=== PATIENT | male | born 1985 | race Caucasian/White ===

== ENCOUNTER 2019-10-08 11:05 | Emergency (ER) | payer BC, SELFPAY ==
--- NOTE | ~2019-10-08 | XR_ITS ---
EXAMINATION: XR chest 1V portable INDICATION: Overdose TECHNIQUE: Portable AP chest at 1144 hours COMPARISON: None available FINDINGS: The lungs are free of acute opacities. There is no pleural effusion or pneumothorax. The ca rdiomediastinal silhouette is normal. The visualized bones and soft tissues are unremarkable. IMPRESSION: 1. No acute cardiopulmonary abnormality. Reviewed, dictated and finalized at location B.
[2019-10-08 11:02] VITALS: BP 116/73; PULSE 98; RESP 15; TEMP 36.2; O2SAT 99
--- NOTE | 2019-10-08 11:14 | ECG_ITS ---
Measurements Intervals [place] Rate: 98 P: 58 MD: 166 QRS: 48 QRSD: 100 T: 46 QT: 351 QTc: 449 Interpretive Statements SINUS RHYTHM NORMAL ECG Electronically Signed On 10-08-2019 11:18:57 CDT by Justus Lester D.O.
[2019-10-08 11:30] LABS: Basophils Absolute Auto 0.1 K/mm3 (0.0-0.1); Basophils Percent Auto 0.6 % (0.2-1.2); Eosinophils Absolute Auto 0.2 K/mm3 (0-0.3); Eosinophils Percent Auto 3.1 % (0-4.4); Hematocrit 41.3 % (42.0-52.0); Immature Granulocyte Absolute 0.06 K/mm3 (0.00-0.031); Immature Granulocyte Percent A 0.8 % (0-0.5); Lymphocytes Absolute Auto 1.44 K/mm3 (0.9-3.2); Lymphocytes Percent Auto 18.5 % (18.3-44.2); Mean Corpuscular HGB Conc 33.9 g/dl (32-36); Mean Corpuscular Hemoglobin 33.3 pg (26-34); Mean Corpuscular Volume 98.3 fl (80-100); Mean Platelet Volume 9.2 fl (7.4-10.4); Monocytes Absolute Auto 0.9 K/mm3 (0.1-0.6); Monocytes Percent Auto 11.3 % (2.6-8.5); Neutrophils Absolute Auto 5.1 K/mm3 (1.3-6.7); Neutrophils Percent Auto 65.7 % (45.5-73.1); Platelet Count Result 422 k/mm3 (150-375); Red Cell Distribution Width 13.8 % (11.5-14.5); White Blood Count 7.8 K/mm3 (4.5-10.0)
--- NOTE | 2019-10-08 11:32 | ED.GENADULT ---
HPI - General Adult General Chief complaint: Overdose <Demetrius Onofre PA-C - Last Filed: 10/08/19 12:32> Stated complaint: FENTANYL OD <Demetrius Onofre PA-C - Last Filed: 10/08/19 12:32> Source: patient <Demetrius Onofre PA-C - Last Filed: 10/08/19 12:32> Mode of arrival: EMS <Demetrius Onofre PA-C - Last Filed: 10/08/19 12:32> Limitations: no limitations <Demetrius Onofre PA-C - Last Filed: 10/08/19 12:32> History of Present Illness HPI narrative: Patient a 33-year-old male who presents to emergency department for evaluation of fentanyl overdose history of IV fentanyl abuse was responded to after lumbar 1 found him was given Narcan with improvement on arrival patient notes he has nausea with fatigue. Patient notes he was fine prior and denies illness COVID symptoms or exposures. Patient had an episode of emesis after being given Narcan. On arrival patient is alert and oriented x3. Patient denies any pain or other complaints besides nausea at this time <Demetrius Onofre PA-C - Last Filed: 10/08/19 12:32> Related Data Home medications: Home Medications Medication Instructions Recorded Confirmed No Home Medications 10/08/19 10/08/19 <Demetrius Onofre PA-C - Last Filed: 10/08/19 12:32> Allergies/adverse reactions: Allergies Allergy/AdvReac Type Severity Reaction Status Date / Time No Known Allergies Allergy Verified 10/08/19 11:10 <Demetrius Onofre PA-C - Last Filed: 10/08/19 12:32> Review of Systems Review of Systems: All systems reviewed & are unremarkable except as noted in HPI and below <Demetrius Onofre PA-C - Last Filed: 10/08/19 12:32> [facility] Past Medical History Medical History: Medical History (Updated 10/08/19 @ 12:32 by Demetrius Onofre PA-C) Accidental fentanyl overdose Hepatitis C <Demetrius Onofre PA-C - Last Filed: 10/08/19 12:32> Social History Social History: Social History Smoking status: Current every day smoker Alcohol intake: unknown Substance use: current Substance use type: IV drugs <Demetrius Onofre PA-C - Last Filed: 10/08/19 12:32> Exam Narrative: Exam Narrative: GENERAL: Well-appearing, well-nourished, and in no acute distress. HEAD: Normocephalic, atraumatic. EYES: PERRLA and EOMI. ENT: Nares clear, no rhinorrhea or epistaxis. Mucous membranes moist. CHEST: Clear to auscultation. No respiratory distress. No wheezes rales or rhonchi HEART: Regular rate and rhythm. No murmur heard. Normal peripheral pulses. ABDOMEN: Soft, nontender, nondistended EXTREMITIES: Normal range of motion. No edema. SKIN: Warm, dry, no rash. NEURO: No focal deficits. Alert and oriented x3. PSYCH: Normal mood and affect. <Demetrius Onofre PA-C - Last Filed: 10/08/19 12:32> Course Course Emergency Course: Patient in the room at this time afebrile nontoxic-appearing has remained in normal mentation. Patient feels comfortable to go home feels much better at this time was given medications and fluids. Patient able to ambulate without difficulty. Patient will be discharged home. No high risk changes in the imaging or blood work. Patient has remained hemodynamically stable <CINDY Canela Last Filed: 10/08/19 12:32> Vital Signs Vital signs: Vital Signs Temperature 97.2 F L 10/08/19 11:02 Pulse Rate 98 10/08/19 11:02 Respiratory Rate 15 10/08/19 11:02 Blood Pressure 116/73 10/08/19 11:02 Pulse Oximetry 99 10/08/19 11:02 Temperature 97.2 F L 10/08/19 11:02 Pulse Rate 76 10/08/19 12:05 Respiratory Rate 18 10/08/19 12:05 Blood Pressure 105/70 10/08/19 12:05 Pulse Oximetry 98 10/08/19 12:05 <Demetrius Onofre PA-C - Last Filed: 10/08/19 12:32> Vital Signs Temperature 97.2 F L 10/08/19 11:02 Pulse Rate 98 10/08/19 11:02 Respiratory Rate 15 10/08/19 11:02 Blood Pressure 116/7
[2019-10-08 11:42] LABS: Anion Gap 12.1 mmol/L (7-16); Blood Urea Nitrogen 11 mg/dL (9-20); Calcium 8.6 mg/dL (8.4-10.2); Carbon Dioxide 29 mmol/L (22-30); Chloride 102 mmol/L (98-107); Estimated CRCL calculation 100 ml/min; Estimated Glomerular Filt Rate > 60; Glucose 71 mg/dL (75-110); Potassium 4.1 mmol/L (3.4-5.0); Sodium 139 mmol/L (137-145)
[2019-10-08 11:46] LABS: Creatine Kinase 123 U/L (55-170)
[2019-10-08] MEDS: FAMOTIDINE 20 MG/2 ML VIAL IV PUSH (11:55)
[2019-10-08 12:05] VITALS: BP 105/70; PULSE 76; RESP 18; O2SAT 98
[2019-10-08] MEDS: LACTATED RINGERS 1,000 ML 999 ML IV CONT (12:05)
[2019-10-08] MEDS: SODIUM CHLORIDE 0.9% IV 1,000 ML 999 ML IV CONT (12:05)
[2019-10-08] MEDS: ONDANSETRON INJ 4 MG/2 ML VIAL IV PUSH (12:05)
[2019-10-08 12:52] VITALS: BP 110/70; PULSE 86; RESP 17; O2SAT 98
== END 2019-10-08 12:52 | disposition home or self-care (01) ==
PROVIDERS: Emergency Medicine Emergency Medical Services; Emergency Provider Emergency Medicine
DX: T40.4X1A Poisoning by other synthetic narcotics, accidental (unintentional), initial encounter (principal); F17.200 Nicotine dependence, unspecified, uncomplicated; Z86.19 Personal history of other infectious and parasitic diseases
CPT/HCPCS: 36415; 71045; 80048; 82550; 85025; 93005; 96361; 96374; 96375; 99284; J2310; J2405; J7030; J7120

== ENCOUNTER 2020-01-11 19:34 | Emergency (ER) | payer BC, SELFPAY ==
--- NOTE | ~2020-01-11 | XR_ITS ---
XR abdomen/kub 1V 01/11/2020 20:29 Indication: Foreign body ingestion Procedure: KUB Comparison: No prior studies for comparison. Findings: Bowel gas pattern nonobstructive. There is a radiodensity in the pelvis, possibly foreign b rajesh versus external object. No acute osseous abnormality. Impression: 1: Possible foreign body overlying the pelvis. Reviewed, dictated and finalized at location A. Impression: 1: Possible foreign body overlying the pelvis.
[2020-01-11 19:38] VITALS: BP 140/117; PULSE 123; RESP 20; TEMP 36.7; O2SAT 100
--- NOTE | 2020-01-11 20:04 | ECG_ITS ---
Measurements Intervals [place] Rate: 75 P: 62 [place]: 142 QRS: 71 QRSD: 94 T: 64 QT: 380 QTc: 426 Interpretive Statements SINUS RHYTHM BASELINE ARTIFACT- I, III, AVL NORMAL ECG Electronically Signed On 01-12-2020 8:09:59 CDT by Justus Lester D.O.
--- NOTE | 2020-01-11 20:05 | PC.NURSE ---
called posdarnell guzman conversshan davis advise of pt status of ingestion.
[2020-01-11] MEDS: LACTATED RINGERS 1,000 ML 150 ML IV CONT (20:16)
[2020-01-11] MEDS: ONDANSETRON INJ 4 MG/2 ML VIAL IV PUSH (20:17)
[2020-01-11 20:48] LABS: Anion Gap 9 mmol/L (8-16); Blood Urea Nitrogen 23 mg/dL (9-20); Calcium 9.1 mg/dL (8.4-10.2); Carbon Dioxide 32 mmol/L (22-30); Chloride 96 mmol/L (98-107); Estimated CRCL calculation 60 ml/min; Estimated Glomerular Filt Rate 58; Glucose 74 mg/dL (75-110); Magnesium 2.3 mg/dL (1.6-2.3); Potassium 3.9 mmol/L (3.4-5.0); Sodium 137 mmol/L (137-145)
[2020-01-11] MEDS: PEG (High)/E-LYTE SOLN 4,000 ML BTL 4000 ML PO (20:54)
[2020-01-11 21:22] VITALS: BP 127/84; PULSE 97; RESP 20; O2SAT 99
--- NOTE | 2020-01-11 23:47 | ED.OVERDOSE ---
HPI - Overdose General Chief Complaint: Overdose Stated Complaint: ATE NARCOTICS Time Seen by Provider: 01/11/20 19:49 Source: patient and EMS Mode of arrival: EMS Limitations: no limitations History of Present Illness HPI Narrative: 34-year-old man brought in by EMS and police Patient states that he was getting a ride to [facility] to get needles The bobtail driver of the vehicle was pulled over The bobtail driver instructed this patient and the other passenger in the car at gun point to ingest several packets of drugs which are supposed to be either meth or fentanyl or heroin Patient states that he complied with this as he fled [facility] subsequently is said to have shot himself Patient does habitually use drugs most recently fentanyl about 4 hours before this incident He has been here once before for a fentanyl overdose MD complaint: intentional overdose Onset (ago): hour(s) Related Data Home Medications Medication Instructions Recorded Confirmed No Home Medications 10/08/19 10/08/19 Allergies Allergy/AdvReac Type Severity Reaction Status Date / Time No Known Allergies Allergy Verified 10/08/19 11:10 Review of Systems Review of Systems: All systems reviewed & are unremarkable except as noted in HPI and below Constitutional: Constitutional: Denies chills, Reports fatigue, Denies fever(s), Denies headache(s) and Denies weakness Eyes: Eyes: Reports no additional eye complaints and Denies change in vision ENT: Denies headache(s), Denies epistaxis, Denies nasal congestion and Denies sore throat Cardiovascular: Cardiovascular: Denies chest pain, Denies leg edema, Denies palpitations and Denies dyspnea Respiratory: Respiratory: Denies cough, Denies dyspnea and Denies wheezing Gastrointestinal: Gastrointestinal: Denies abdominal pain, Denies diarrhea, Reports nausea and Denies vomiting Genitourinary: Genitourinary: Denies hematuria, Denies dysuria and Denies urinary frequency Musculoskeletal: Musculoskeletal: Denies deformity, Denies arthralgias, Denies joint swelling, Denies muscle weakness and Denies numbness Integumentary/Breasts: Skin/Breast: Denies rash and Denies wounds Neurologic: Denies headache(s), Denies focal weakness, Denies numbness and Denies weakness Psychiatric: Comments: Patient states he might be schizophrenic however no documented psych history Endocrine: Endocrine: Denies fatigue and Denies palpitations Hematologic/Lymphatic: Hematologic/Lymphatic: Denies easy bleeding and Denies easy bruising Allergic/Immunologic: Allergic/Immunologic: Denies wheezing PMFSH Past Medical History Medical History (Updated 01/12/20 @ 00:06 by Lambert Red MD) Accidental fentanyl overdose Hepatitis C Social History Social History Smoking status: Current every day smoker Alcohol intake: unknown Substance use: current Substance use type: IV drugs Exam Const: General: well developed and awake Nutritional Appearance: well nourished Orientation/consciousness: patient oriented x3 (alert) HENMT: Head: normal to inspection, normocephalic and atraumatic Ears: external ears normal General nose exam: No nasal discharge present and no epistaxis Face and sinus: face symmetric Eyes: Conjunctivae: conjunctivae normal Sclera: sclerae normal Pupils: Equal, round and reactive pupils present (3 mm) EOM: EOMs intact bilaterally Neck: Neck: normal visual inspection, supple and no JVD Chest: Chest palpation & inspection: deferred Resp: Effort & Inspection: normal respiratory effort Auscultation: clear to auscultation bilaterally, no rales, no rhonchi, no wheezes and other (BS =) Cardio: Rate: regular rate Rhythm: regular rhythm Heart sounds: no gallops and no murmurs GI: Inspection: normal to inspection GI Palp: Yes Soft to palpation and No Tenderness to palpation present (GI) : General: Yes no CVA tenderness Back/Spine/Pelvis: Thora
--- NOTE | 2020-01-12 00:04 | PC.NURSE ---
pt states i am suicidal and want to go to the [facility] . please just send me to the [facility] . I explained to the pt that we could not do that, because he was not medically cleared. Pt states i just want to sign out and go to alf . iona goldsmith made aware.
--- NOTE | 2020-01-12 00:22 | PC.NURSE ---
per dr goldsmith, pt is denying si at this time. no need to to si [facility] labs.
[2020-01-12] MEDS: cloNIDine 0.1 MG/24 HR PATCH 1 PATCH TRANSDERM (01:03)
[2020-01-12 01:33] VITALS: BP 102/60; PULSE 76; RESP 20; O2SAT 99
[2020-01-12] MEDS: hydrOXYzine HCL 25 MG TABLET 50 MG PO (01:38)
[2020-01-12 03:23] VITALS: BP 110/62; PULSE 76; RESP 18; O2SAT 98
--- NOTE | 2020-01-17 19:19 | PC.NURSE ---
ns stop time 2100
--- NOTE | 2020-01-17 19:22 | PC.NURSE ---
LATE ENTRY This note is being entered to document information to the patient's record. The following information was omitted on [], by [ns stop @ [id number]].
== END 2020-01-12 03:25 ==
PROVIDERS: Emergency Provider Emergency Medicine
DX: T40.601A Poisoning by unspecified narcotics, accidental (unintentional), initial encounter (principal); T18.9XXA Foreign body of alimentary tract, part unspecified, initial encounter; Z86.19 Personal history of other infectious and parasitic diseases; F17.200 Nicotine dependence, unspecified, uncomplicated
CPT/HCPCS: 36415; 74018; 80048; 83735; 93005; 96361; 96374; 99284; A9270; J2405; J7120

== ENCOUNTER 2020-09-30 03:33 | Emergency (ER) | payer BC, SELFPAY ==
[2020-09-30 03:45] VITALS: BP 138/85; PULSE 100; RESP 20; TEMP 36.8; O2SAT 100
[2020-09-30 04:30] VITALS: BP 147/89; PULSE 93; RESP 24; O2SAT 99
[2020-09-30 05:30] VITALS: BP 152/86; PULSE 102; RESP 20; O2SAT 99
--- NOTE | 2020-09-30 05:55 | ED.GENADULT ---
HPI - General Adult General Chief complaint: Unspecified Stated complaint: Ingestion Time Seen by Provider: 09/30/20 05:09 History of Present Illness HPI narrative: Patient is a 34-year-old gentleman who presents the emergency department with chief complaint of accidental overdose. Patient reports that he had some things on his Person[employer] that he should not of had and he was pulled over by the police. Instead of the police having access to this he proceeded to take the baggy that was filled with methamphetamine and fentanyl and swallowing the back the patient reports that he feels a little anxious right now to do this around 9:00 this evening and the patient reports that the police called the paramedics and had him transported to the emergency department the patient denies chest pain denies shortness of breath denies sedation Related Data Home Medications Medication Instructions Recorded Confirmed No Home Medications 10/08/19 10/08/19 Allergies Allergy/AdvReac Type Severity Reaction Status Date / Time No Known Allergies Allergy Verified 10/08/19 11:10 Review of Systems Review of Systems: Narrative: A 10 system review of systems was completed on the patient and is negative except for what is stated in the HPI. Nursing and ancillary documentation was reviewed. [facility] Past Medical History Medical History Accidental fentanyl overdose Hepatitis C Social History Social History Smoking status: Current every day smoker Alcohol intake: unknown Substance use: current Substance use type: IV drugs Exam Narrative: Exam Narrative: GENERAL: Well-appearing, well-nourished, and in no acute distress. HEAD: Normocephalic, atraumatic. EYES: PERRLA and EOMI. ENT: Nares clear, no rhinorrhea or epistaxis. Mucous membranes moist. NECK: Supple. CHEST: Clear to auscultation. No respiratory distress. HEART: Regular rate and rhythm. No murmur heard. Normal peripheral pulses. ABDOMEN: Soft, nontender, nondistended, normal active bowel sounds. EXTREMITIES: Normal range of motion. No edema. SKIN: Warm, dry, no rash. NEURO: No focal deficits. Alert and oriented x3. PSYCH: Normal mood and affect. Course Vital Signs Vital signs: Vital Signs Temperature 36.8 C 09/30/20 03:45 Pulse Rate 100 09/30/20 03:45 Respiratory Rate 09/30/20 03:45 Blood Pressure 138/85 09/30/20 03:45 Pulse Oximetry 100 09/30/20 03:45 Temperature 36.8 C 09/30/20 03:45 Pulse Rate 102 H 09/30/20 05:30 Respiratory Rate 20 09/30/20 05:30 Blood Pressure 152/86 H 09/30/20 05:30 Pulse Oximetry 99 09/30/20 05:30 Medical Decision Making Vital Signs Vital Signs: Vital Signs Temperature 36.8 C 09/30/20 03:45 Pulse Rate 09/30/20 03:45 Respiratory Rate 09/30/20 03:45 Blood Pressure 138/85 09/30/20 03:45 Pulse Oximetry 09/30/20 03:45 Temperature 36.8 C 09/30/20 03:45 Pulse Rate 102 H 09/30/20 05:30 Respiratory Rate 09/30/20 05:30 Blood Pressure 152/86 H 09/30/20 05:30 Pulse Oximetry 09/30/20 05:30 Lab Data Result diagrams: 09/30/20 06:28 09/30/20 06:28 Labs: Lab Results 09/30/20 09/30/20 09/30/20 Range/Units 06:28 06:28 06:28 WBC 10.2 H (4.5-10.0) K/mm3 RBC 4.57 L (4.6-6.20) M/mm3 Hgb 15.3 (14.0-18.0) g/dL Hct 45.5 (42.0-52.0) % MCV 99.6 (80-100) fl MCH 33.5 (26-34) pg MCHC 33.6 (32-36) g/dl RDW 14.3 (11.5-14.5) % Plt Count 377 H (150-375) k/mm3 MPV 9.3 (7.4-10.4) fl Immature Gran % (Auto) 0.3 (0-0.5) % Neut % (Auto) 58.5 (45.5-73.1) % Lymph % (Auto) 28.7 (18.3-44.2) % [place] % (Auto) 11.6 H (2.6-8.5) % Eos % (Auto) 0.2 (0-4.4) % Baso % (Auto) 0.7 (0.2-1.2) % Lymph # (Auto) 2.92 (0.9-3.2) K/mm3 [place] # (Auto) 1.2 H
[2020-09-30 06:37] LABS: Basophils Absolute Auto 0.1 K/mm3 (0.0-0.1); Basophils Percent Auto 0.7 % (0.2-1.2); Eosinophils Percent Auto 0.2 % (0-4.4); Hematocrit 45.5 % (42.0-52.0); Hemoglobin 15.3 g/dL (14.0-18.0); Immature Granulocyte Absolute 0.03 K/mm3 (0.00-0.031); Immature Granulocyte Percent A 0.3 % (0-0.5); Lymphocytes Absolute Auto 2.92 K/mm3 (0.9-3.2); Lymphocytes Percent Auto 28.7 % (18.3-44.2); Mean Corpuscular HGB Conc 33.6 g/dl (32-36); Mean Corpuscular Hemoglobin 33.5 pg (26-34); Mean Corpuscular Volume 99.6 fl (80-100); Mean Platelet Volume 9.3 fl (7.4-10.4); Monocytes Absolute Auto 1.2 K/mm3 (0.1-0.6); Monocytes Percent Auto 11.6 % (2.6-8.5); Neutrophils Percent Auto 58.5 % (45.5-73.1); Platelet Count Result 377 k/mm3 (150-375); Red Blood Count 4.57 M/mm3 (4.6-6.20); Red Cell Distribution Width 14.3 % (11.5-14.5); White Blood Count 10.2 K/mm3 (4.5-10.0)
--- NOTE | 2020-09-30 06:37 | PC.NURSE ---
Poison control notified for ingestion of meth between 8-9 pm last evening. Poison control RN informed of labs, observe for 6 hours after ingestion of plastic bags and meds.
[2020-09-30 06:46] LABS: Acetaminophen < 10 ug/mL (10-30); Ethanol < 10 mg/dL (<10); Salicylate < 1.0 mg/dL (2-20)
[2020-09-30 06:47] LABS: Add Urine Microscopic? YES; Alanine Aminotransferase 334 U/L (4-50); Alkaline Phosphatase 122 U/L (38-126); Anion Gap 9 mmol/L (8-16); Appearance Urine Clear (Clear); Aspartate Amino Transferase 222 U/L (17-59); Bilirubin Urine Negative (Negative); Bilirubin,Total 1.2 mg/dL (0.2-1.3); Blood Urea Nitrogen 20 mg/dL (9-20); Blood Urine Negative (Negative); Calcium 9.9 mg/dL (8.4-10.2); Carbon Dioxide 29 mmol/L (22-30); Chloride 102 mmol/L (98-107); Color Urine Yellow (Yellow); Estimated Glomerular Filt Rate > 60; Glucose 117 mg/dL (65-110); Glucose Urine UA Negative (Negative); Ketones Urine Negative (Negative); Leukocyte Esterase Ur Negative LEU/UL (Negative); Mucus Urine Rare /lpf; Nitrate Urine Negative (Negative); Potassium 4.5 mmol/L (3.4-5.0); Protein Urine 1+ mg/dL (Negative); RBC Urine 0-2 /hpf (0-2); Sodium 140 mmol/L (137-145); Specific Grav Ur 1.027 (1.001-1.035); Urobilinogen Urine Negative mg/dL (<2.0); WBC Urine 0-3 /hpf
--- NOTE | 2020-09-30 07:08 | PC.NURSE ---
Pt ready for discharge. EKG, medications, and UDS ordered and not yet completed. Per Dr. Connor, pt has been connected to cardiac monitoring for several hours. VS and rhythm stable and within normal limits. Pt is no longer experiencing symptoms of drug ingestion. Per Dr. Connor, pt can be discharged home without further interventions at this time.
[2020-09-30 07:16] VITALS: BP 156/72; PULSE 82; RESP 15; O2SAT 99
[2020-09-30 09:31] LABS: Barbiturate Screen Urine Negative (Negative); Benzodiazepines Screen Urine Negative (Negative)
[2020-09-30 09:34] LABS: Cannabinoid Screen Urine Positive (Negative); Cocaine Screen Urine Positive (Negative); Methadone Screen Urine Negative (Negative); Opiate Screen Urine Negative (Negative); Phencyclidine Screen Urine Negative (Negative)
[2020-09-30 10:34] LABS: Amphetamine Screen Urine Positive (Negative)
== END 2020-09-30 07:18 | disposition home or self-care (01) ==
PROVIDERS: Emergency Provider Emergency Medicine
DX: T40.411A Poisoning by fentanyl or fentanyl analogs, accidental (unintentional), initial encounter (principal); T43.621A Poisoning by amphetamines, accidental (unintentional), initial encounter; Z86.19 Personal history of other infectious and parasitic diseases; F17.200 Nicotine dependence, unspecified, uncomplicated
CPT/HCPCS: 36415; 80053; 80307; 81001; 85025; 99283

== ENCOUNTER 2021-09-09 19:59 | Emergency (ER) | payer BC, SELFPAY ==
--- NOTE | ~2021-09-09 | XR_ITS ---
EXAMINATION: XR chest 1V portable Exam Date/Time: 09/09/2021 20:20 CDT HISTORY: overdose Comparison: 10/08/2019. RESULT: Lines, tubes, and devices: None. Lungs and pleura: No acute abnormality. Microcalcifications in the right midlung likely reflecting g ranulomatous or other chronic process. Cardiomediastinal silhouette: Stable cardiomediastinal silhouette. Other: No acute osseous or upper abdominal finding. IMPRESSION: No acute cardiopulmonary process. Reviewed, dictated and finalized at location K.
--- NOTE | 2021-09-09 20:08 | ED.OVERDOSE ---
HPI - Overdose General Chief Complaint: Overdose <Judy Muir MD - Last Filed: 09/09/21 21:54> Stated Complaint: overdose <Judy Muir MD - Last Filed: 09/09/21 21:54> Time Seen by Provider: 09/09/21 20:08 <Judy Muir MD - Last Filed: 09/09/21 21:54> History of Present Illness HPI Narrative: Patient is a 35-year-old male with a history of polysubstance abuse presenting to the emergency department for evaluation after intentionally ingesting fentanyl and methamphetamine in an effort to conceal it from law enforcement. Patient reports approximately 5 fentanyl tablets and 1 g of ice 20 minutes prior to arrival. Patient is denying any nausea, vomiting, abdominal pain. He is reporting mild drowsiness. Patient reports marijuana use, denies alcohol use. Patient denies any chest pain, cough, dyspnea. Denies recent fall, trauma or injury. Patient currently in law enforcement custody. <Judy Muir MD - Last Filed: 09/09/21 21:54> Related Data Home Medications: Home Medications Medication Instructions Recorded Confirmed No Home Medications 10/08/19 10/08/19 <Judy Muir MD - Last Filed: 09/09/21 21:54> Allergies/Adverse Reactions: Allergies Allergy/AdvReac Type Severity Reaction Status Date / Time No Known Allergies Allergy Verified 10/08/19 11:10 <Judy Muir MD - Last Filed: 09/09/21 21:54> Review of Systems Review of Systems: CONSTITUTIONAL: Denies fever, chills, or sweats. ENT: Denies rhinorrhea, congestion, sore throat, or otalgia. CARDIOVASCULAR: Denies chest pain, palpitations, or edema. RESPIRATORY: Denies cough or dyspnea. GASTROINTESTINAL: Denies abdominal pain, nausea, vomiting, or diarrhea. GENITOURINARY: Denies dysuria or hematuria. SKIN: Denies rash or itching. MUSCULOSKELETAL: Denies back pain, joint pain, or myalgia. NEUROLOGIC: Denies headache, numbness, or weakness. <Judy Muir MD - Last Filed: 09/09/21 21:54> [facility] Past Medical History Medical History: Medical History Accidental fentanyl overdose Hepatitis C <Judy Muir MD - Last Filed: 09/09/21 21:54> Social History Social History: Social History Smoking status: Current every day smoker Alcohol intake: unknown Substance use: current Substance use type: marijuana, opiates and methamphetamine <Judy Muir MD - Last Filed: 09/09/21 21:54> Exam Narrative: GENERAL: Awake, alert, conversant HEAD: Normocephalic, atraumatic. EYES: PERRLA and EOMI. ENT: Nares clear, no rhinorrhea or epistaxis. Mucous membranes moist. NECK: Supple. CHEST: No respiratory distress, breathing even and non labored HEART: Regular rate, sinus rhythm ABDOMEN:Non distended, non tender EXTREMITIES: Normal range of motion. No edema. SKIN: Warm, dry, no rash. NEURO:No focal deficits. Alert and oriented x3 <Judy Muir MD - Last Filed: 09/09/21 21:54> Course Reevaluation(s) Reevaluation #1: Patient care was signed out by Dr. Muir. Plan at signout was to observe the patient until midnight until he was medically cleared by poison control and to be discharged into police custody. On reevaluation patient denies any complaints at this time. Patient is alert oriented and his vitals are within normal limits. Patient is not hypoxic. Patient wakes up to voice without issue. Patient will be discharged into police custody <Pankaj Fischer MD - Last Filed: 09/10/21 03:14> Vital Signs Vital signs: Vital Signs Temperature 98.0 F 09/09/21 21:02 Pulse Rate 81 09/09/21 21:02 Respiratory Rate 20 09/09/21 21:02 Blood Pressure 112/64 09/09/21 21:02 Pulse Oximetry 97 09/09/21 21:02 Oxygen Delivery Room Air 09/09/21 21:02 Temperature 98.0 F 09/09/21 21:02 Pulse Rate 69 09/10/21 00:33 Respiratory Rate 18 08/14
--- NOTE | 2021-09-09 20:16 | ECG_ITS ---
Measurements Intervals [place] Rate: 80 P: 51 NV: 155 QRS: 24 QRSD: 86 T: 32 QT: 407 QTc: 471 Interpretive Statements SINUS RHYTHM COMPARED TO ECG 01/11/2020 20:08:07 NO SIGNIFICANT CHANGES Electronically Signed On 09-09-2021 22:54:14 CDT by Corinna Ryan M.D.
[2021-09-09 20:57] LABS: Basophils Absolute Auto 0.1 K/mm3 (0.0-0.1); Basophils Percent Auto 0.6 % (0.2-1.2); Eosinophils Absolute Auto 0.1 K/mm3 (0-0.3); Eosinophils Percent Auto 0.7 % (0-4.4); Hematocrit 39.5 % (42.0-52.0); Hemoglobin 13.2 g/dL (14.0-18.0); Immature Granulocyte Absolute 0.04 K/mm3 (0.00-0.031); Immature Granulocyte Percent A 0.3 % (0-0.5); Lymphocytes Absolute Auto 2.78 K/mm3 (0.9-3.2); Lymphocytes Percent Auto 23.4 % (18.3-44.2); Mean Corpuscular HGB Conc 33.4 g/dl (32-36); Mean Corpuscular Hemoglobin 33.4 pg (26-34); Mean Platelet Volume 8.8 fl (7.4-10.4); Monocytes Percent Auto 8.1 % (2.6-8.5); Neutrophils Percent Auto 66.9 % (45.5-73.1); Platelet Count Result 364 k/mm3 (150-375); Red Blood Count 3.95 M/mm3 (4.6-6.20); White Blood Count 11.9 K/mm3 (4.5-10.0)
[2021-09-09 20:59] LABS: Appearance Urine Clear (Clear); Bilirubin Urine 1+ (Negative); Blood Urine Negative (Negative); Color Urine Yellow (Yellow); Glucose Urine UA Negative (Negative); Ketones Urine Trace mg/dL (Negative); Leukocyte Esterase Ur Negative LEU/UL (Negative); Nitrate Urine Negative (Negative); Protein Urine 1+ mg/dL (Negative); Specific Grav Ur >= 1.030 (1.001-1.035); pH Urine 5.5 (5.0-9.0)
[2021-09-09 21:02] VITALS: BP 112/64; PULSE 81; RESP 20; TEMP 36.7; O2SAT 97
[2021-09-09 21:05] LABS: Bacteria Urine Trace /hpf; Mucus Urine Heavy /lpf; Squamous Epithelial Cell Urine Rare /hpf (Few)
[2021-09-09 21:06] LABS: Add Urine Microscopic? YES
[2021-09-09 21:07] LABS: Acetaminophen < 10 ug/mL (10-30); Alanine Aminotransferase 204 U/L (6-50); Albumin Level 4.4 g/dL (3.5-5.1); Alkaline Phosphatase 104 U/L (38-126); Anion Gap 6 mmol/L (8-16); Aspartate Amino Transferase 153 U/L (17-59); Bilirubin,Total 0.8 mg/dL (0.2-1.3); Blood Urea Nitrogen 15 mg/dL (9-20); Calcium 8.8 mg/dL (8.4-10.2); Carbon Dioxide 28 mmol/L (22-30); Chloride 102 mmol/L (98-107); Estimated Glomerular Filt Rate > 60; Ethanol < 10 mg/dL (<10); Glucose 96 mg/dL (65-110); Potassium 4.2 mmol/L (3.4-5.0); Salicylate < 1.0 mg/dL (2-20); Sodium 136 mmol/L (137-145)
[2021-09-09 21:18] LABS: Barbiturate Screen Urine Negative (Negative); Benzodiazepines Screen Urine Positive (Negative)
[2021-09-09 21:27] LABS: Cannabinoid Screen Urine Positive (Negative); Cocaine Screen Urine Negative (Negative); Methadone Screen Urine Negative (Negative); Opiate Screen Urine Positive (Negative); Phencyclidine Screen Urine Negative (Negative)
--- NOTE | 2021-09-09 21:45 | PC.NURSE ---
Accu check 83.
--- NOTE | 2021-09-09 21:45 | PC.NURSE ---
Pt has eluid to having thoughts of killing himself about 2-3 weeks ago. Charge Nurse Tiffanie KABA advisd of findings and computer suggestion of High Risk. [place] [employer] at bedside also made aware of Pt current condition and possible Tx for Ideations.
[2021-09-09 21:59] LABS: Amphetamine Screen Urine Positive (Negative)
[2021-09-09] MEDS: ONDANSETRON INJ 4 MG/2 ML VIAL IV PUSH (22:19)
[2021-09-09] MEDS: SODIUM CHLORIDE 0.9% IV 1,000 ML 999 ML IV CONT (22:19)
--- NOTE | 2021-09-09 22:53 | PC.NURSE ---
Loretta from [place] poision control called for update on Pt. pt remains sleepy but esilly arousable to verbal stimuli. 0 further nausea.
[2021-09-09 23:03] LABS: Glucose Point of Care 83 mg/dl (65-105)
[2021-09-09 23:58] VITALS: RESP 20
[2021-09-10 00:33] VITALS: BP 102/64; PULSE 69; RESP 18; O2SAT 100
== END 2021-09-10 00:36 ==
PROVIDERS: Emergency Provider Emergency Medicine
DX: T40.412A Poisoning by fentanyl or fentanyl analogs, intentional self-harm, initial encounter (principal); T43.622A Poisoning by amphetamines, intentional self-harm, initial encounter
CPT/HCPCS: 36415; 71045; 80053; 80307; 81001; 82948; 85025; 93005; 96361; 96374; 99284; J2405; J7030

== ENCOUNTER 2021-10-05 15:58 | Emergency (ER) | payer BC, SELFPAY ==
[2021-10-05 16:15] VITALS: BP 106/75; PULSE 81; RESP 16; TEMP 36.9; O2SAT 96
--- NOTE | 2021-10-05 16:59 | ED.DENTAL ---
HPI - Dental/Oral General Chief complaint: Dental/Oral Stated complaint: Tooth Pain Time Seen by Provider: 10/05/21 16:59 Source: patient, RN notes reviewed and old records reviewed Mode of arrival: ambulatory Limitations: no limitations History of Present Illness HPI Narrative: 35-year-old male presents to the [facility] with complaints of dental pain to the left lower area. Does have very poor dentition. Unknown last time we have seen a dentist. Denies fevers. No chest pain or abdominal pain. Patient is a smoker Related Data Allergies Allergy/AdvReac Type Severity Reaction Status Date / Time No Known Allergies Allergy Verified 10/05/21 16:19 Review of Systems Review of Systems: All systems reviewed & are unremarkable except as noted in HPI and below Constitutional: Constitutional: Reports no additional constitutional complaints, Denies chills and Denies fever(s) Eyes: Eyes: Reports no additional eye complaints ENT: Reports as per HPI and Reports dental pain Cardiovascular: Cardiovascular: Reports no additional cardiovascular complaints Respiratory: Respiratory: Reports no additional respiratory complaints Gastrointestinal: Gastrointestinal: Reports no additional gastrointestinal complaints Musculoskeletal: Musculoskeletal: Reports no additional musculoskeletal complaints Integumentary/Breasts: Skin/Breast: Reports system reviewed and no additional complaints, except as docu Neurologic: Reports system reviewed and no additional complaints, except as documented Psychiatric: Psychiatric: Reports no additional psychiatric complaints Allergic/Immunologic: Allergic/Immunologic: Reports no additional allergic/immunologic complaints PMFSH Past Medical History Medical History Accidental fentanyl overdose Hepatitis C Surgical History Surgical History (Updated 10/06/21 @ 15:02 by Yenifer Mcdaniel APRN) No history of previous surgery Social History Social History Smoking status: Current every day smoker Alcohol intake: unknown Substance use: current Substance use type: marijuana, opiates and methamphetamine Comments At the time of my signature, I reviewed and agree with the nursing past medical, surgical, social, and family history. There is no relevant family history pertinent to the patient complaint. Exam Const: General: healthy appearing, no acute distress and alert Nutritional Appearance: well nourished Orientation/consciousness: patient oriented x3 Limitations: no limitations HENMT: Head: normal to inspection Ears: external ears normal, TM's normal bilaterally and EAC's normal Teeth and gingiva: abnormal tooth and associated gingiva lower right second molar tender, with associated gingival edema and dentin fractured; without associated gingival fluctuance and poor dentition Eyes: General: appearance normal, both eyes and all related structures Pupils: Equal, round and reactive pupils present Neck: Neck: normal visual inspection, no lymphadenopathy and no meningeal signs Chest: Chest palpation & inspection: normal inspection of the chest Resp: Effort & Inspection: normal respiratory effort and no use of accessory muscles Auscultation: clear to auscultation bilaterally, no crackles, no rales, no rhonchi and no wheezes Cardio: Rate: regular rate Rhythm: regular rhythm Back/Spine/Pelvis: Cervical Spine: normal cervical lordosis Thoracic/Lumbar Spine: thoracic and lumbar spine normal to inspection Skin: General skin exam: normal color Rashes: no rashes Wounds: no wounds Neuro: General: patient oriented x3, moves all extremities, no meningeal signs and no focal motor deficits Cranial nerves: Yes Equal, round and reactive pupils present Speech: normal speech Gait exam (Neuro): Normal gait present Extrem: General: normal to inspection, full ROM and capillary refill normal Psy
[2021-10-05] MEDS: IBUPROFEN 600 MG TABLET PO (17:19)
== END 2021-10-05 17:17 | disposition home or self-care (01) ==
PROVIDERS: Emergency Provider Nurse Practitioner
DX: K02.9 Dental caries, unspecified (principal); K04.7 Periapical abscess without sinus; F17.290 Nicotine dependence, other tobacco product, uncomplicated; Z86.19 Personal history of other infectious and parasitic diseases
CPT/HCPCS: 99213; A9270; G0463

== ENCOUNTER 2021-10-24 23:36 | Observation (INO) | payer BC, SELFPAY ==
[2021-10-24 23:37] VITALS: PULSE 78; RESP 14; TEMP 36.3; O2SAT 100
--- NOTE | 2021-10-24 23:40 | ECG_ITS ---
Measurements Intervals [place] Rate: 74 P: 61 RI: 151 QRS: 52 QRSD: 92 T: 38 QT: 384 QTc: 428 Interpretive Statements SINUS RHYTHM NORMAL ECG COMPARED TO ECG 09/09/2021 21:37:28 NO SIGNIFICANT CHANGES Electronically Signed On 10-25-2021 14:36:36 CDT by Zackary Canas M.D.
[2021-10-24 23:42] VITALS: RESP 14
--- NOTE | 2021-10-24 23:53 | ED.GENADULT ---
HPI - General Adult General Chief complaint: Overdose Stated complaint: FENTANYL INGESTION Time Seen by Provider: 10/24/21 23:38 History of Present Illness HPI narrative: 35-year-old male brought in by EMS secondary to ingestion of drugs. He had a bag of 10 fentanyl and a plastic bag. He got pulled over by the police and he swallowed the entire bag. This happened approximately 30 to 45 minutes ago. He does take fentanyl on a regular basis up to 3 at a time. He also uses amphetamine. He denies any symptoms or problems at this time. Does have underlying history of hepatitis C. Related Data Allergies Allergy/AdvReac Type Severity Reaction Status Date / Time No Known Allergies Allergy Verified 10/05/21 16:19 Review of Systems Review of Systems: CONSTITUTIONAL: Denies fever, chills, or sweats. EYES: Denies visual changes, redness, or discharge. ENT: Denies rhinorrhea, congestion, sore throat, or otalgia. CARDIOVASCULAR: Denies chest pain, palpitations, or edema. RESPIRATORY: Denies cough or dyspnea. GASTROINTESTINAL: Denies abdominal pain, nausea, vomiting, or diarrhea. GENITOURINARY: Denies dysuria or hematuria. SKIN: Has a circular rash to the right upper extremity has been there for several weeks MUSCULOSKELETAL: Denies back pain, joint pain, or myalgia. NEUROLOGIC: Denies headache, numbness, or weakness. PSYCHIATRIC: Denies anxiety or depression. [facility] Past Medical History Medical History (Updated 10/25/21 @ 00:45 by Lambert Fischer DO) Accidental fentanyl overdose Hepatitis C Surgical History Surgical History No history of previous surgery Social History Social History Smoking status: Current every day smoker Alcohol intake: unknown Substance use: current Substance use type: marijuana, opiates and methamphetamine Exam Narrative: APPEARANCE: Well appearing, no pain or distress, well-nourished. Head Normocephalic and atraumatic. EYES: PERRLA/EOMI, conjunctivae clear. NOSE: Normal with no drainage EARS:TMS clear with Concepcion, with good light reflex. THROAT: Pharynx clear, no exudate. NECK: Supple. No adenopathy, no masses. RESPIRATORY: Airway patent, respirations nonlabored. Clear to auscultation bilaterally, no rales, rhonchi, wheezing. CARDIOVASCULAR: Regular rate and rhythm without murmurs, rubs, or gallops. ABDOMINAL: Soft, nontender, nondistended, no hepatosplenomegaly Musculoskeletal: Moves all extremities. Strength/ROM intact, No edema, No calf tenderness. NEURO: Alert. Cranial nerves II through XII intact. Normal gait. Good coordination. Nonfocal examination. SKIN:: Warm, dry. Normal Color. Circular lesion noted to the posterior aspect of his right arm just above the elbow consistent with ringworm PSYCHIATRIC: Normal affect/mood, normal interaction Course Vital Signs Vital signs: Vital Signs Temperature 97.3 F L 10/24/21 23:37 Pulse Rate 78 10/24/21 23:37 Respiratory Rate 14 10/24/21 23:37 Pulse Oximetry 100 10/24/21 23:37 Oxygen Delivery Room Air 10/24/21 23:37 Temperature 97.3 F L 10/24/21 23:37 Pulse Rate 68 10/25/21 00:31 Respiratory Rate 12 10/25/21 00:31 Blood Pressure 140/95 H 10/25/21 00:31 Pulse Oximetry 98 10/25/21 00:31 Oxygen Delivery Room Air 10/24/21 23:37 Medical Decision Making MDM Narrative Medical decision making narrative: The potential for serious outcome is pretty great should the bag of fentanyl rupture in his intestines. Patient was began on a GoLytely prep in the emergency department and then given IV Reglan to try to help increase the transit time through his gut. Patient will need to stay in the hospital and observation status until he passes this bag of drugs. Discussed with hospitalist and will put the patient in the IMU. Vital Signs Vital Signs: Vital Signs Temperature 97.3 F L 10/24/21 23:37 Pulse Rat
[2021-10-24 23:57] LABS: Basophils Absolute Auto 0.1 K/mm3 (0.0-0.1); Basophils Percent Auto 1.1 % (0.2-1.2); Eosinophils Absolute Auto 0.4 K/mm3 (0-0.3); Eosinophils Percent Auto 5.6 % (0-4.4); Hematocrit 36.8 % (42.0-52.0); Hemoglobin 11.9 g/dL (14.0-18.0); Immature Granulocyte Absolute 0.02 K/mm3 (0.00-0.031); Immature Granulocyte Percent A 0.3 % (0-0.5); Lymphocytes Absolute Auto 3.71 K/mm3 (0.9-3.2); Lymphocytes Percent Auto 53.2 % (18.3-44.2); Mean Corpuscular HGB Conc 32.3 g/dl (32-36); Mean Corpuscular Hemoglobin 32.9 pg (26-34); Mean Corpuscular Volume 101.7 fl (80-100); Mean Platelet Volume 9.1 fl (7.4-10.4); Monocytes Absolute Auto 1.1 K/mm3 (0.1-0.6); Monocytes Percent Auto 15.1 % (2.6-8.5); Neutrophils Absolute Auto 1.7 K/mm3 (1.3-6.7); Neutrophils Percent Auto 24.7 % (45.5-73.1); Platelet Count Result 386 k/mm3 (150-375); Red Blood Count 3.62 M/mm3 (4.6-6.20); Red Cell Distribution Width 14.2 % (11.5-14.5)
[2021-10-25] VITALS (24 sets, daily range): BP systolic 91–140; BP diastolic 48–95; PULSE 54–91; RESP 12–20; TEMP 36.3–36.7; O2SAT 95–100; BMI 24.9
[2021-10-25 00:06] LABS: Alanine Aminotransferase 188 U/L (6-50); Alkaline Phosphatase 116 U/L (38-126); Anion Gap 8 mmol/L (8-16); Aspartate Amino Transferase 148 U/L (17-59); Bilirubin,Total 0.3 mg/dL (0.2-1.3); Blood Urea Nitrogen 13 mg/dL (9-20); Calcium 8.9 mg/dL (8.4-10.2); Carbon Dioxide 28 mmol/L (22-30); Chloride 101 mmol/L (98-107); Estimated CRCL calculation 115 ml/min; Estimated Glomerular Filt Rate > 60; Glucose 135 mg/dL (65-110); Potassium 4.1 mmol/L (3.4-5.0); Sodium 137 mmol/L (137-145)
[2021-10-25] MEDS: PEG (High)/E-LYTE SOLN 4,000 ML BTL 2000 ML PO (00:22)
--- NOTE | 2021-10-25 00:43 | PM.IMHP ---
H&P: HPI History of Present Illness Date/Time: 10/25/21 00:43 Chief Complaint: ingestion of drug Narrative: This is a 35-year-old male with past medical history significant for IV drug use, methamphetamine use, fentanyl use, tobacco use, patient ingested a packet of 10 fentanyl capsules and presented to the emergency room for evaluation. Has been injecting methamphetamine in his neck denies any fevers, rigors, chills, nausea, vomiting, diarrhea, abdominal pain, rashes. in emergency room preliminary workup essentially nonrevealing patient is been placed in observation. Review of Systems Review of Systems: Patient ingested a packet of 10 capsules of fentanyl Constitutional: Constitutional: Denies chills, Denies fatigue, Denies fever(s), Denies malaise, Denies night sweats and Denies poor appetite Eyes: Eyes: Denies change in vision ENT: Denies dysphagia, Denies vertigo, Denies dizziness and Denies odynophagia Cardiovascular: Cardiovascular: Denies chest pain, Denies irregular heart rhythm, Denies lightheadedness, Denies palpitations and Denies dyspnea on exertion Respiratory: Respiratory: Denies chest congestion, Denies cough, Denies excessive phlegm production and Denies pain on inspiration Gastrointestinal: Gastrointestinal: Denies abdominal pain, Denies dyspepsia, Denies heartburn, Denies diarrhea, Denies nausea and Denies vomiting Genitourinary: Genitourinary: Reports no additional male genitourinary complaints and Reports as per HPI Musculoskeletal: Musculoskeletal: Denies back pain, Denies arthralgias and Denies joint swelling Integumentary/Breasts: Skin/Breast: Reports change in pigmentation ( right neck site of injection for drug use) and Reports erythema Neurologic: Denies vertigo, Denies dizziness, Denies focal weakness and Denies Sensory deficit (Neuro) Psychiatric: Psychiatric: Reports no additional psychiatric complaints and Reports as per HPI Endocrine: Endocrine: Denies cold intolerance, Denies fatigue, Denies flushing, Denies heat intolerance, Denies polyphagia and Denies palpitations Hematologic/Lymphatic: Hematologic/Lymphatic: Reports no additional hematologic/lymphatic complaints and Reports as per HPI Allergic/Immunologic: Allergic/Immunologic: Reports no additional allergic/immunologic complaints and Reports as per HPI PMF Past Medical History Medical History (Updated 10/25/21 @ 05:52 by Theodora Georges MD) Accidental fentanyl overdose Hepatitis C Surgical History Surgical History No history of previous surgery Family History Family History (Updated 10/25/21 @ 04:21 by Gladis Barrios RN) Other Unknown family medical history Social History Social History Smoking status: Current every day smoker Alcohol intake: never Substance use: current Substance use type: marijuana, IV drugs and methamphetamine Spiritual care concerns: No Meds Home Medications and Allergies Home Medications Medication Instructions Recorded Confirmed Type No Home Medications 10/25/21 10/25/21 History Allergies Allergy/AdvReac Type Severity Reaction Status Date / Time No Known Allergies Allergy Verified 10/05/21 16:19 Vital Signs Vital Signs - 24 hr 10/24/21 23:37 10/24/21 23:42 10/25/21 00:31 Temperature 97.3 F L Pulse Rate 78 68 Respiratory Rate 14 14 12 Blood Pressure 140/95 H Pulse Oximetry 100 98 Oxygen Delivery Room Air Exam Narrative: patient is sitting in the stretcher Const: General: cooperative, comfortable, no acute distress, well developed, alert, awake and Physically active Nutritional Appearance: average body habitus Orientation/consciousness: patient oriented x3 HENMT: Head: normal to inspection, normocephalic and atraumatic Ears: hearing grossly normal bilaterally Face and sinus: normal facial exam Eyes: General: appeara
[2021-10-25] MEDS: METOCLOPRAMIDE HCL INJ 10 MG/2 ML VIAL IV PUSH (00:55)
[2021-10-25] MEDS: LORazepam INJ (*CRX) 2 MG/ML VIAL 1 MG IV PUSH (01:17)
--- NOTE | 2021-10-25 01:51 | PC.NURSE ---
This patient, Samson Shepard, was admitted to IMU Room 202-. Patient/family oriented to hospital policies and general routines including ID bracelet, bed and alarms, visiting hours, pain management, procedures, bathroom and other care routines, personal items, smoking policy, room service/diet, and visiting hours. Information on how to activate the Rapid Response Team has been discussed. Patient/Family are encouraged to report perceived risks to care and to ask questions if they do not understand what they are told or what they should do.
[2021-10-25] MEDS: flumazeniL 0.5 MG/5 ML VIAL 1 MG (02:50)
--- NOTE | 2021-10-25 03:01 | PC.NURSE ---
Addendum entered by Lisbeth Austin RN 10/25/21 03:51: This note was entered by Lisbeth Austin RN Original Note: 0235 Assessed pt and he is extremely drowsy with minimal reaction to sternal rub and inability to stay awake, snoring respirations noted by Padmini Quintana RN. Spoke with Dr Georges and expressed concerns for safety. Pt unable to drink golyetly to pass bag of Fentanyl buttons in this condition. NG contraindicated per Dr Georges. Dr Nash states there is little to do prophylactically but closely monitor the patient. Expressed concerns and asked about moving to ICU. Dr Georges agreeable to changing status. Spoke with Dr Sarmiento and he is comfortable with overflowing as IMU to ICU but doesn't want to accept as ICU patient at this time.
[2021-10-25] MEDS: polyethylene glycoL 3350 238 GM BOTTLE PO (03:18)
--- NOTE | 2021-10-25 03:42 | PC.NURSE ---
Received this patient into ICU 2 as IMU overflow at 0330. Patient is more responsive after receiving 1mg of Romazicon. VSS, respirations 17, O2 sat 100% on room air. Will continue to monitor closely.
--- NOTE | 2021-10-25 03:52 | PC.NURSE ---
This patient, Samson Shepard, was transferred to [icu 2 ] on 10/25/21 at 0345 as imu status in icu for closer monitoring. Personal belongings sent with patient. Report given to [Gladis KABA ]. Appropriate documentation sent with patient.
--- NOTE | 2021-10-25 05:07 | PM.EVENT ---
Event Note Event Note Event Note: I was called to the patient's room for evaluation due to concerns after patient became unresponsive difficult to arouse with sternal rub. Objective: Patient is lethargic laying in bed in supine position does not look in distress saturating 97% on room air. subjective: Unresponsive general: Unresponsive however looks comfortable overall looks well HEENT: Atraumatic normocephalic, PERRLA pupils are 3 mm in diameter neck is supple no JVD. respiratory: Clear to auscultation bilaterally no wheezes room call crackles cardiovascular: S1-S2 heard no murmurs rubs or gallops abdomen: Soft nontender nondistended no hepatosplenomegaly muscle skeletal: No edema, no clubbing, no cyanosis. central nervous system: Patient is unresponsive to painful stimuli grimaces and withdraws no focal sensorimotor deficit face is symmetric skin: warm moist assessment and plan 1- altered mental status: Episode of unresponsiveness patient given Romazicon 1 mg IV which immediately patient walk up and was able to carry on a conversation appropriately his alert awake oriented x4. patient is been transferred to ICU for close monitoring. 2- fentanyl capsules packet ingestion: continue to monitor MiraLax 280 g to accelerate GI transit 3- IVDU: no fevers rigors or chills cultures in progress
--- NOTE | 2021-10-25 05:48 | PC.NURSE ---
[id number] Call received from Officer Cheyanne from the [place] [employer]. Asks that the [place] office get called before the patient gets discharged. Phone number provided is [phone].
--- NOTE | 2021-10-25 05:49 | PC.NURSE ---
[address] Georges. states she just got word that it is unlikely the patient swallowed a bag of Fentanyl and said he did to not be arrested by police. aware that patient is not being cooperative with drinking mirilax or golytely.
--- NOTE | 2021-10-25 08:53 | PC.NURSE ---
Pt stated that he already passed the bag of fentanyl. He stated that he flushed the bag down the toilet last night while in the Emergency Department. According to a prior nursing note, patient stated that he never swallowed a bag of fentanyl.
--- NOTE | 2021-10-25 11:43 | PM.IMPN ---
Progress Note: A&P Assessment and Plan (1) Accidental fentanyl overdose: Code(s): T40.4X1A - Status: Acute Assessment and Plan: place in observation supportive care continue to monitor 10/25/2021 interval history: patient was carrying 10 fentanyl capsules with him and when police approached him, he ingested 10 fentanyl capsules, police brought patient to the ER and patient urine is positive for opiate, amphetamine, benzodiazepines, and Cannibis, later he was found unresponsive in the ICU was given Naloxone and then flumazenil and woke up and responding appropriately, this morning patient was clinically stable, plan was monitor overnight and possibly discharge him tomorrow, however he was insisting to leave AMA, later local police came to arrest the patient now he want to stay in the hospital, will continue monitor and if remains clinically stable may discharge him to Police tomorrow. (2) IVDU (intravenous drug user): Code(s): F19.90 - Other psychoactive substance use, unspecified, uncomplicated Status: Acute Assessment and Plan: blood cultures in progress (3) Hepatitis C: Code(s): B19.20 - Unspecified viral hepatitis C without hepatic coma Status: Acute Assessment and Plan: follow-up in outpatient setting (4) Polysubstance abuse: Code(s): F19.10 - Other psychoactive substance abuse, uncomplicated Status: Acute Assessment and Plan: patient uses methamphetamine, fentanyl, tobacco. follow-up in the outpatient setting Subjective Date/time seen: 10/25/21 11:43 ingestion of drug HPI-Narrative: ?This is a 35-year-old male with past medical history significant for IV drug use, methamphetamine use, fentanyl use, tobacco use, patient ingested a packet of 10 fentanyl capsules and presented to the emergency room for evaluation.? Has been injecting methamphetamine in his neck denies any fevers, rigors, chills, nausea, vomiting, diarrhea, abdominal pain, rashes. in emergency room preliminary workup essentially nonrevealing patient is been placed in observation. 10/25/2021 interval history: patient was carrying 10 fentanyl capsules with him and when police approached him, he ingested 10 fentanyl capsules, police brought patient to the ER and patient urine is positive for opiate, amphetamine, benzodiazepines, and Cannibis, later he was found unresponsive in the ICU was given Naloxone and then flumazenil and woke up and responding appropriately, this morning patient was clinically stable, plan was monitor overnight and possibly discharge him tomorrow, however he was insisting to leave AMA, later local police came to arrest the patient now he want to stay in the hospital, will continue monitor and if remains clinically stable may discharge him to Police tomorrow. Review of Systems Review of Systems: Patient ingested a packet of 10 capsules of fentanyl Constitutional: Constitutional: Denies chills, Denies fatigue, Denies fever(s), Denies malaise, Denies night sweats and Denies poor appetite Exam Narrative: Patient is comfortable, NAD HEENT: eyes are clear and none icteric LUNGS: normal respiratory effort ABD:not distended Lower extremities: no edema SKIN: nonjaundiced Neuro: grossly intact. Objective Data Vital Signs Vital Signs: Vital Signs - 24 hr 10/24/21 23:37 10/24/21 23:42 10/25/21 00:31 Temperature 97.3 F L Pulse Rate 78 68 Respiratory Rate 14 14 12 Blood Pressure 140/95 H Pulse Oximetry 100 98 Oxygen Delivery Room Air 10/25/21 01:34 10/25/21 01:45 10/25/21 02:00 Temperature 97.3 F L 97.9 F Pulse Rate 62 63 Respiratory Rate 18 16 Blood Pressure 106/71 127/67 Pulse Oximetry 100 99 Oxygen Delivery Room Air 10/25/21 02:00 10/25/21 03:35 10/25/21 04:00 Temperature 98.0 F Pulse Rate 76 82 62 Respiratory Rate 17 14 Blood Pressure 110/67 120/80 Pulse Oximetry 100 98 Oxygen Delivery 10/25/21 04:00
--- NOTE | 2021-10-25 11:47 | PC.NURSE ---
1000 Pt signed AMA paperwork, despite being cautioned by Dr. Foreman and nursing staff that it would be advisable to stay as an inpatient for monitoring. 1010 Officers from [place] police department entered patient's room. Pt has decided to stay as an inpatient for monitoring. Vital sign monitoring resumed and new IV placed. IV is saline locked. Officers have been requested to kindly notify nursing staff prior to attempting to enter patient's room.
[2021-10-25] MEDS: NICOTINE (*PBKC) 21 MG PATCH 1 PATCH TRANSDERM (13:56)
[2021-10-25 18:09] LABS: Amphetamine Screen Urine Negative (Negative); Barbiturate Screen Urine Negative (Negative); Benzodiazepines Screen Urine Negative (Negative); Cannabinoid Screen Urine Negative (Negative); Cocaine Screen Urine Negative (Negative); Methadone Screen Urine Negative (Negative); Opiate Screen Urine Negative (Negative); Phencyclidine Screen Urine Negative (Negative)
[2021-10-25] MEDS: chlordiazePOXIDE (*CRX) 25 MG CAPSULE PO (18:48)
[2021-10-25 21:05] LABS: HIV 1/2 Ab P24 Ag Result Negative (Negative)
[2021-10-26] VITALS: BP 126/80; PULSE 57; RESP 18; TEMP 36.6; O2SAT 100
[2021-10-26] MEDS: traZODone HCL 50 MG TABLET PO (00:11)
[2021-10-26 02:00] VITALS: PULSE 66
[2021-10-26 04:00] VITALS: BP 109/92; PULSE 87; RESP 24; TEMP 37; O2SAT 100
[2021-10-26 04:23] LABS: Hematocrit 41.7 % (42.0-52.0); Hemoglobin 13.7 g/dL (14.0-18.0); Mean Corpuscular HGB Conc 32.9 g/dl (32-36); Mean Corpuscular Hemoglobin 32.9 pg (26-34); Mean Platelet Volume 8.9 fl (7.4-10.4); Platelet Count Result 392 k/mm3 (150-375); Red Blood Count 4.17 M/mm3 (4.6-6.20); Red Cell Distribution Width 14.1 % (11.5-14.5); White Blood Count 8.5 K/mm3 (4.5-10.0)
[2021-10-26 04:34] LABS: Alanine Aminotransferase 213 U/L (6-50); Albumin Level 4.3 g/dL (3.5-5.1); Alkaline Phosphatase 117 U/L (38-126); Anion Gap 7 mmol/L (8-16); Aspartate Amino Transferase 166 U/L (17-59); Bilirubin,Total 0.4 mg/dL (0.2-1.3); Blood Urea Nitrogen 13 mg/dL (9-20); Carbon Dioxide 29 mmol/L (22-30); Chloride 101 mmol/L (98-107); Estimated CRCL calculation 115 ml/min; Estimated Glomerular Filt Rate > 60; Glucose 119 mg/dL (65-110); Magnesium 2.2 mg/dL (1.6-2.3); Potassium 4.3 mmol/L (3.4-5.0); Sodium 137 mmol/L (137-145)
[2021-10-26 06:00] VITALS: PULSE 52
[2021-10-26 08:00] VITALS: BP 116/76; PULSE 57; PULSE 72; RESP 20; TEMP 36.8; O2SAT 99
[2021-10-26] MEDS: NICOTINE (*PBKC) 21 MG PATCH 1 PATCH TRANSDERM (09:06)
[2021-10-26 10:00] VITALS: PULSE 81
--- NOTE | 2021-10-26 12:09 | PM.DS ---
DS: Admitting Diagnosis Discharge Date 10/26/2021 Admitting Diagnosis drug ingestion DS: Discharge Diagnosis Discharge Diagnosis (1) Accidental fentanyl overdose: Code(s): T40.4X1A - Status: Acute Assessment and Plan: (2) IVDU (intravenous drug user): Code(s): F19.90 - Other psychoactive substance use, unspecified, uncomplicated Status: Acute Assessment and Plan: Ss (3) Hepatitis C: Code(s): B19.20 - Unspecified viral hepatitis C without hepatic coma Status: Acute (4) Polysubstance abuse: Code(s): F19.10 - Other psychoactive substance abuse, uncomplicated Status: Acute DS: Summary Hospital Course Hospital Course: This is a 35-year-old male who who was caring 10 fentanyl capsules with him and when police approached him he ingested 10 fender capsules and was brought into the ER for evaluation. His urine drug screen was all negative. He was given a dose GoLYTELY in the ER along with IV Reglan to increase transit time through it got. He states that he passed his bags yesterday. He was admitted for further observation. While in the hospital on 10/25/2021 he was found unresponsive was given naloxone influenza will after which he woke up and respond appropriately. He was admitted to the ICU for further observation since then. He was wanting to initially leave AMA however local police was here to arrest him and hence he decided to stay. During my evaluation on 10/26/2021 he was adamant on leaving AMA. He left the ICU room while I was still talking and left the premises. Police was notified but was not present by the time he left the premises. Time Spent with Patient Time attestation: Total time spent providing and/or coordinating discharge services: 45 minutes Exam Narrative: Not examined as he left against medical advice DS: Data Data Completed and Pending Labs on day of discharge: Labs from last 24 hours 10/26/21 10/26/21 10/25/21 04:18 04:18 17:47 WBC 8.5 RBC 4.17 L Hgb 13.7 L Hct 41.7 L MCV 100.0 MCH 32.9 MCHC 32.9 RDW 14.1 Plt Count 392 H MPV 8.9 Sodium 137 Potassium 4.3 Chloride 101 Carbon Dioxide 29 Anion Gap 7 L BUN 13 Creatinine 0.70 Estim Creat Clear Calc 115 Estimated GFR > 60 Glucose 119 H Calcium 9.0 Magnesium 2.2 Total Bilirubin 0.4 AST 166 H ALT 213 H Alkaline Phosphatase 117 Total Protein 8.0 Albumin 4.3 Urine Opiates Screen Negative Urine Methadone Screen Negative Ur Barbiturates Screen Negative Ur Phencyclidine Scrn Negative Ur Amphetamine Screen Negative U Benzodiazepines Scrn Negative Urine Cocaine Screen Negative U Cannabinoids Screen Negative HIV 1&2 Ab/P24 Ag 4thGn 10/24/21 23:51 WBC RBC Hgb Hct MCV MCH MCHC RDW Plt Count MPV Sodium Potassium Chloride Carbon Dioxide Anion Gap BUN Creatinine Estim Creat Clear Calc Estimated GFR Glucose Calcium Magnesium Total Bilirubin AST ALT Alkaline Phosphatase Total Protein Albumin Urine Opiates Screen Urine Methadone Screen Ur Barbiturates Screen Ur Phencyclidine Scrn Ur Amphetamine Screen U Benzodiazepines Scrn Urine Cocaine Screen U Cannabinoids Screen HIV 1&2 Ab/P24 Ag 4thGn Negative Preliminary micro results at discharge 10/25/21 02:44 Blood Culture - Preliminary Blood 10/25/21 02:44 Blood Culture - Preliminary Blood Discharge Plan Discharge Consulting providers: Francisco Raman Anticipated Discharge Date/Time: 10/26/21 12:16 Patient Disposition: Left Against Medical Advice Patient Instructions: How to Stop Smoking (DC), Polysubstance Use Disorder (DC) Discharge Medications: No Action No Home Medications Date of admission: 10/25/21 00:43 Primary Care Provider: PHYSICIAN,NETWORK PROJECT MANAGER Admitting Provider: Theodora Georges phys
--- NOTE | 2021-10-26 12:11 | PCDIET ---
Patient left against medical advice at 1155. Patient oriented x 4, no complaints of chest pain or shortness of breath. Patient [place] Suicide completed this am, patient denies any thought or intention to hurt himself. Patient left floor via the stairwell, and ambulated to the front door without incident.
== END 2021-10-26 11:55 | disposition left against medical advice (07) ==
LOC: ANHED 10-25 00:45 → ANHIMU 10-25 01:41 → ANHICU 10-25 03:56
PROVIDERS: Family Medicine; Admitting Provider Internal Medicine; Emergency Provider Emergency Medicine; Visit Provider Internal Medicine
DX: T40.411A Poisoning by fentanyl or fentanyl analogs, accidental (unintentional), initial encounter (principal); Y92.410 Unspecified street and highway as the place of occurrence of the external cause; R40.4 Transient alteration of awareness; F19.10 Other psychoactive substance abuse, uncomplicated; B19.20 Unspecified viral hepatitis C without hepatic coma; F15.90 Other stimulant use, unspecified, uncomplicated; F11.90 Opioid use, unspecified, uncomplicated; F12.90 Cannabis use, unspecified, uncomplicated; Z11.4 Encounter for screening for human immunodeficiency virus [HIV]; Z53.29 Procedure and treatment not carried out because of patient's decision for other reasons; F17.200 Nicotine dependence, unspecified, uncomplicated; Z79.1 Long term (current) use of non-steroidal anti-inflammatories (NSAID); Z79.899 Other long term (current) drug therapy
CPT/HCPCS: 36415; 80053; 80307; 83735; 85025; 85027; 86703; 87040; 93005; 96374; 96375; 99285; A9270; G0378; G0379; G0432; J2060; J2310; J2765

== ENCOUNTER 2023-03-06 12:07 | Emergency (ER) | payer BC, SELFPAY ==
[2023-03-06 12:08] VITALS: BP 119/71; PULSE 84; RESP 11; TEMP 36.4; O2SAT 99
--- NOTE | 2023-03-06 12:16 | ECG_ITS ---
Measurements Intervals [place] Rate: 81 P: 58 NE: 146 QRS: 34 QRSD: 92 T: 36 QT: 384 QTc: 446 Interpretive Statements SINUS RHYTHM COMPARED TO ECG 10/24/2021 23:44:25 NO SIGNIFICANT CHANGES Electronically Signed On 03-06-2023 17:12:18 GINNER HELPER by Corinna Ryan M.D.
--- NOTE | 2023-03-06 12:40 | ED.OVERDOSE ---
HPI - Overdose General Chief Complaint: Overdose Stated Complaint: possible OD Time Seen by Provider: 03/06/23 12:33 Source: patient, EMS and police Mode of arrival: EMS Limitations: no limitations History of Present Illness HPI Narrative: The patient is a 37-year-old male with a past medical history of drug abuse who presents emergency department today with [place] police department for evaluation after he was being arrested and taken into custody and then told them that he had swallowed 8 fentanyl capsules and also used fentanyl this morning and meth within the last 24 hours. Upon arrival patient is alert, oriented x4. He is in no acute distress. Denies any chest pain, shortness of breath, headache, dizziness, nausea, vomiting. States he feels fine. He states he swallowed the capsule is due to being paranoid about the police. Related Data Home Medications Medication Instructions Recorded Confirmed No Home Medications 10/25/21 03/06/23 Allergies Allergy/AdvReac Type Severity Reaction Status Date / Time No Known Allergies Allergy Verified 03/06/23 12:40 Review of Systems Review of Systems: CONSTITUTIONAL: Denies fever, chills, or sweats. EYES: Denies visual changes, redness, or discharge. ENT: Denies rhinorrhea, congestion, sore throat, or otalgia. CARDIOVASCULAR: Denies chest pain, palpitations, or edema. RESPIRATORY: Denies cough or dyspnea. GASTROINTESTINAL: Denies abdominal pain, nausea, vomiting, or diarrhea. GENITOURINARY: Denies dysuria or hematuria. SKIN: Denies rash or itching. MUSCULOSKELETAL: Denies back pain, joint pain, or myalgia. NEUROLOGIC: Denies headache, numbness, or weakness. PSYCHIATRIC: Denies anxiety or depression. All systems reviewed & are unremarkable except as noted in HPI and below PMFSH Past Medical History Medical History (Updated 03/06/23 @ 14:33 by Rhonda Murphy APRN) Accidental fentanyl overdose Hepatitis C Surgical History Surgical History No history of previous surgery Family History Family History (Updated 10/25/21 @ 04:21 by Gladis Barrios RN) Other Unknown family medical history Social History Social History Smoking status: Current every day smoker Alcohol intake: never Substance use: current Substance use type: marijuana, IV drugs and methamphetamine Spiritual care concerns: No Exam Narrative: GENERAL: Slightly unkept male, resting on exam stretcher, respirations regular, even, nonlabored. There is no acute distress noted. HEAD: Normocephalic, atraumatic. EYES: PERRLA and EOMI. ENT: Nares clear, no rhinorrhea or epistaxis. Mucous membranes moist. NECK: Supple. CHEST: Clear to auscultation. No respiratory distress. HEART: Regular rate and rhythm. No murmur heard. Normal peripheral pulses. ABDOMEN: Soft, nontender, nondistended, normal active bowel sounds. EXTREMITIES: Normal range of motion. No edema. SKIN: Warm, dry, no rash. Prior scars to bilateral antecubital fossa region of the arms as well as multiple different scars from scabs to upper and lower extremities. NEURO: No focal deficits. Alert and oriented x3. CN II-XII grossly intact PSYCH: Normal mood and affect. Course Vital Signs Vital signs: Vital Signs Temperature 97.6 F 03/06/23 12:08 Pulse Rate 84 03/06/23 12:08 Respiratory Rate 11 L 03/06/23 12:08 Blood Pressure 119/71 03/06/23 12:08 Pulse Oximetry 99 03/06/23 12:08 Oxygen Delivery Room Air 03/06/23 12:08 Temperature 97.6 F 03/06/23 12:08 Pulse Rate 72 03/06/23 14:51 Respiratory Rate 17 03/06/23 14:51 Blood Pressure 126/62 03/06/23 14:51 Pulse Oximetry 98 03/06/23 14:51 Oxygen Delivery Room Air 03/06/23 12:08 MDM - Overdose MDM Narrative Medical decision making narrative: Patient presents after swallowing fentantyl when being arrested by
[2023-03-06 12:51] LABS: Basophils Absolute Auto 0.1 K/mm3 (0.0-0.1); Basophils Percent Auto 0.8 % (0.2-1.2); Eosinophils Absolute Auto 0.6 K/mm3 (0-0.3); Hematocrit 38.1 % (42.0-52.0); Hemoglobin 12.2 g/dL (14.0-18.0); Immature Granulocyte Absolute 0.02 K/mm3 (0.00-0.031); Immature Granulocyte Percent A 0.3 % (0-0.5); Lymphocytes Absolute Auto 2.54 K/mm3 (0.9-3.2); Lymphocytes Percent Auto 35.6 % (18.3-44.2); Mean Corpuscular Hemoglobin 33.5 pg (26-34); Mean Corpuscular Volume 104.7 fl (80-100); Monocytes Percent Auto 14.2 % (2.6-8.5); Neutrophils Absolute Auto 2.9 K/mm3 (1.3-6.7); Neutrophils Percent Auto 40.1 % (45.5-73.1); Platelet Count Result 250 k/mm3 (150-375); Red Blood Count 3.64 M/mm3 (4.6-6.20); Red Cell Distribution Width 14.4 % (11.5-14.5); White Blood Count 7.1 K/mm3 (4.5-10.0)
[2023-03-06 13:05] LABS: Acetaminophen < 10 ug/mL (10-30); Ethanol < 10 mg/dL (<10); Salicylate < 1.0 mg/dL (2-20)
[2023-03-06 13:06] LABS: Alanine Aminotransferase 253 U/L (6-50); Albumin Level 3.6 g/dL (3.5-5.1); Alkaline Phosphatase 115 U/L (38-126); Anion Gap 8 mmol/L (8-16); Aspartate Amino Transferase 246 U/L (17-59); Bilirubin,Total 0.8 mg/dL (0.2-1.3); Blood Urea Nitrogen 10 mg/dL (9-20); Calcium 8.6 mg/dL (8.4-10.2); Carbon Dioxide 26 mmol/L (22-30); Chloride 102 mmol/L (98-107); Estimated CRCL calculation 112 ml/min; Estimated Glomerular Filt Rate > 60; Glucose 89 mg/dL (65-110); Potassium 4.1 mmol/L (3.4-5.0); Sodium 136 mmol/L (137-145)
[2023-03-06 13:15] VITALS: PULSE 63; RESP 13; O2SAT 97
[2023-03-06 13:29] VITALS: BP 122/72; PULSE 61; RESP 10; O2SAT 100
[2023-03-06 13:29] LABS: SARS-CoV-2 RNA PCR Negative (Negative)
[2023-03-06 13:31] VITALS: BP 126/69; PULSE 61; RESP 10; O2SAT 99
[2023-03-06 13:46] VITALS: BP 121/65; PULSE 60; RESP 13; O2SAT 97
[2023-03-06 13:49] LABS: Appearance Urine Clear (Clear); Bilirubin Urine Negative (Negative); Blood Urine Negative (Negative); Color Urine Yellow (Yellow); Glucose Urine UA Negative (Negative); Ketones Urine Negative (Negative); Leukocyte Esterase Ur Negative LEU/UL (Negative); Nitrate Urine Negative (Negative); Protein Urine Negative (Negative); Specific Grav Ur 1.009 (1.001-1.035)
[2023-03-06 13:50] LABS: Add Urine Microscopic? NO
[2023-03-06 14:51] VITALS: BP 126/62; PULSE 72; RESP 17; O2SAT 98
== END 2023-03-06 14:52 | disposition home or self-care (01) ==
PROVIDERS: Emergency Medicine; Emergency Provider Nurse Practitioner
DX: T40.411A Poisoning by fentanyl or fentanyl analogs, accidental (unintentional), initial encounter (principal); F19.10 Other psychoactive substance abuse, uncomplicated; F17.210 Nicotine dependence, cigarettes, uncomplicated; B19.20 Unspecified viral hepatitis C without hepatic coma; Z20.822 Contact with and (suspected) exposure to COVID-19
CPT/HCPCS: 36415; 80053; 80307; 81003; 84443; 85025; 87635; 93005; 99283

== ENCOUNTER 2023-03-19 12:04 | Emergency (ER) | payer BC, SELFPAY ==
--- NOTE | ~2023-03-19 | XR_ITS ---
XR foot RT min 3V DATE: 03/19/2023 13:18 INDICATION: Right foot laceration from stepping on glass TECHNIQUE: 4 views COMPARISON: None FINDINGS: No fracture or dislocation, periosteal reaction or bone destruction is detected. No radiopaque soft tissue foreign body is evident. No subcutaneous emphysema. IMPRESSION: Negative Reviewed, dictated and finalized at location A. [facility] CONSULTANT IMPRESSION: Negative
[2023-03-19 12:04] VITALS: BP 136/75; PULSE 86; RESP 16; TEMP 36.2; O2SAT 99
[2023-03-19] MEDS: TETANUS,DIPHTHERIA,AC PERTUSSIS ADULT (0.5 ML) BOOSTRIX IM (13:42)
--- NOTE | 2023-03-19 14:14 | ED.WOUNDLAC ---
HPI - Wound/Laceration General Chief Complaint: Wound/Laceration Stated Complaint: foot lac Time Seen by Provider: 03/19/23 12:15 Source: patient Mode of arrival: wheelchair Limitations: no limitations History of Present Illness HPI narrative: This is a 37 year old male that presents to the ER for laceration to the right foot sustained just prior to arrival. Reports he was running and stepped on something. Reports bleeding and pain to the area. He is not up to date on tetanus. Denies decreased ROM or numbness. Related Data Allergies Allergy/AdvReac Type Severity Reaction Status Date / Time No Known Allergies Allergy Verified 03/06/23 12:40 Review of Systems Review of Systems: CONSTITUTIONAL: Denies fever SKIN: Reports laceration All systems reviewed & are unremarkable except as noted in HPI and below PMFSH Past Medical History Medical History (Updated 03/19/23 @ 14:41 by Gladis Rodriguez PA-C) Accidental fentanyl overdose Hepatitis C Surgical History Surgical History No history of previous surgery Family History Family History (Updated 10/25/21 @ 04:21 by Gladis Barrios RN) Other Unknown family medical history Social History Social History Smoking status: Current every day smoker Alcohol intake: never Substance use: current Substance use type: marijuana, IV drugs and methamphetamine Spiritual care concerns: No Exam Narrative: GENERAL: Well-appearing, well-nourished, and in no acute distress. HEAD: Normocephalic, atraumatic. EYES: EOMI. EXTREMITIES: Normal range of motion. No edema. Right foot plantar surface with 1.5cm linear laceration into subcutaneous tissue below the 5th metatarsal. Normal DP pulse. Normal sensation SKIN: Warm, dry, no rash. NEURO: No focal deficits. Alert and oriented x3. PSYCH: Normal mood and affect Course Course Emergency Course: Patient updated on workup and educated on wound care Vital Signs Vital signs: Vital Signs Temperature 97.2 F L 03/19/23 12:04 Pulse Rate 86 03/19/23 12:04 Respiratory Rate 16 03/19/23 12:04 Blood Pressure 136/75 03/19/23 12:04 Pulse Oximetry 99 03/19/23 12:04 Temperature 97.2 F L 03/19/23 12:04 Pulse Rate 86 03/19/23 12:04 Respiratory Rate 16 03/19/23 12:04 Blood Pressure 136/75 03/19/23 12:04 Pulse Oximetry 99 03/19/23 12:04 Procedures Laceration Laceration 1: Date: 03/19/23 Time: 14:44 Site: lower extremity Side (If applicable): right Size (cm): 1.5 Description: linear Depth: simple, single layer Local Anesthetic: lidocaine 1% and with epi Amount of anesthesia used (mL): 2 Pre-repair: wound explored and irrigated ====== Skin Level ====== Skin layer closed with: nylon Size (cm): 4-0 Number of sutures: 2 Technique: simple, interrupted ====== Subcutaneous Layer ====== ====== Muscle Layer ====== ====== Tendon Layer ====== MDM - Wound/Laceration MDM Narrative Medical decision making narrative: Patient presents to the ER for laceration to the plantar surface of his left foot. Patient's wound was irrigated and closed with sutures. He was updated on tetanus. He is neurovascularly intact. Left foot x-ray without acute osseous abnormalities or evidence of foreign body. Patient updated on workup and educated on wound care. He is to follow up with primary provider. He was given warnings to return to the ER Differential Diagnosis Differential diagnosis: Likely laceration and abrasion Imaging Data Radiologist's impression: ITS Impressions Foot X-Ray 03/19/23 13:20 IMPRESSION: Negative Critical Care Time Critical Care Time Critical Care Time: No Discharge Plan Discharge Clinical Impression: Laceration Patient Disposit
== END 2023-03-19 15:10 | disposition home or self-care (01) ==
PROVIDERS: Emergency Provider Physician Assistant
DX: S91.311A Laceration without foreign body, right foot, initial encounter (principal); Z23 Encounter for immunization; W26.9XXA Contact with unspecified sharp object(s), initial encounter
CPT/HCPCS: 12001; 73630; 90471; 90715; 99283

== ENCOUNTER 2024-08-22 18:40 | Emergency (ER) | payer BC, SELFPAY ==
--- NOTE | ~2024-08-22 | XR_ITS ---
XR chest 1V portable Ordering provider: Florencio Cabral MD History: 38 years Male with . overdose . Comparison: None. FINDINGS: MEDIASTINUM: The cardiac silhouette is not enlarged. LUNGS: No infiltrates, effusions or pneumothorax. OTHER: No free air under the diaphragm. IMPRESSION: No acute cardiopulmonary pathology. Reviewed, dictated and finalized at location A.
[2024-08-22 18:42] VITALS: BP 114/64; PULSE 78; RESP 17; TEMP 36.6; O2SAT 94
[2024-08-22 18:47] VITALS: O2SAT 94
[2024-08-22 18:50] VITALS: BP 114/64; PULSE 66; RESP 9; O2SAT 93
[2024-08-22 18:51] VITALS: RESP 13
[2024-08-22] MEDS: NALOXONE HCL 0.4 MG/ML VIAL IV PUSH (19:17)
--- NOTE | 2024-08-22 19:20 | ED_ITS ---
HPI - Overdose General Chief Complaint: Overdose Stated Complaint: OVERDOSE Time Seen by Provider: 08/22/24 18:53 History of Present Illness HPI Narrative: 38-year-old male with a history of polysubstance abuse including IV drug use, fentanyl intranasal, meth use. Patient presents to the emergency department after suspected overdose by police department. Patient states he took 2 buttons of fentanyl around 4:00 p.m. today and was walking around the [facility] [place] and went to the train tracks [place] a short cut back home. He was found sleeping near by and please were called. Patient did not require any Narcan prior to transfer but he does frequently does off. During my interview he is breathing around 10- 12 times a minute and nodding off occasionally but states that he feels like he had too much fentanyl today and from a new supply of that he was not used to. Denies any other ingestions and states that he snorted it. Denies any drug use today otherwise. No headache, vision changes, chest pain, shortness a breath, abdominal pain, back pain. He states he has had overdoses before requiring naloxone. Related Data Allergies Allergy/AdvReac Type Severity Reaction Status Date / Time No Known Allergies Allergy Verified 03/06/23 12:40 Review of Systems Review of Systems: As reviewed above in HPI [facility] Past Medical History Medical History Accidental fentanyl overdose Hepatitis C Surgical History Surgical History No history of previous surgery Family History Family History Other Unknown family medical history Social History Social History Smoking status: Current every day smoker Alcohol intake: never Substance use: current Substance use type: opiates, inhalants and methamphetamine Spiritual care concerns: No Exam Narrative: GENERAL: Somnolent but arousable to verbal and physical stimuli and speaks in complete sentences when awake HEAD: [Normocephalic, atraumatic.] EYES: [PERRLA and EOMI.] ENT: Nares clear, no rhinorrhea or epistaxis. Mucous membranes moist. NECK: Supple. CHEST: Hypopnea but clear breath sounds, no respiratory distress HEART: [Regular rate and rhythm]. No murmur heard. [Normal peripheral pulses.] ABDOMEN: [Soft, nondistended], [nontender], [No rigidity or guarding] EXTREMITIES: Normal range of motion. [No edema.] SKIN: Warm, dry, no rash. NEURO: [No focal deficits]. Alert and oriented [x3.] PSYCH: [Normal mood and affect.] Course Vital Signs Vital signs: Vital Signs Temperature 36.6 C 08/22/24 18:42 Pulse Rate 78 08/22/24 18:42 Respiratory Rate 17 08/22/24 18:42 Blood Pressure 114/64 08/22/24 18:42 Pulse Oximetry 94 08/22/24 18:42 Oxygen Delivery Room Air 08/22/24 18:42 Temperature 36.6 C 08/22/24 18:42 Pulse Rate 66 08/22/24 18:50 Respiratory Rate 13 08/22/24 18:51 Blood Pressure 114/64 08/22/24 18:50 Pulse Oximetry 93 08/22/24 18:50 Oxygen Delivery Room Air 08/22/24 18:47 MDM - Overdose MDM Narrative Medical decision making narrative: 38-year-old male with a history of polysubstance abuse including methamphetamine and fentanyl. He presents after suspected overdose of intranasal fentanyl. He states he used final about 4:00 p.m. and had an overdose. Did not require naloxone when please found him. He is somnolent but arousable to verbal and physical stimuli in breathing anywhere between 10-17 times per minute with good waveform on pulse oximetry showing 94+%. No tachycardia, hypoxia, fever, blood pressure derangements. Throughout the encounter patient does not off multiple times and had breathing patterns in the 8-10 range requiring 0.4 mg of intranasal naloxone with immediate improvement. Discussed with the patient we will observe him for approximately 2 hours after naloxone make sure he does not have any recurrence of his overdose. He was okay with IV establishment and basic laboratory studies and a chest x-ray ordered. He was placed on pulse oximetry and electronic device monitor. Will be re-evaluated frequently. Naloxone will be prescribed upon discharge. Patient did receive a dose of intranasal naloxone 0.4mg with improvement in his respiratory efforts and mental status. Patient observed here for approximately 2 hours but informed nursing staff that he would like to sign out AMA. Patient left without getting his paperwork or allowing me to discuss with him. Patient did have naloxone prescribed to him electronically. Medical Records Attestation: I reviewed the patient's medical records. Lab Data Attestation: I reviewed the patient's lab results. Imaging Data Attestation: I personally reviewed and interpreted this imaging study as follows: My impression: Impressions Chest X-Ray 08/22/24 19:11 IMPRESSION: No acute cardiopulmonary pathology. Critical Care Time Critical Care Time Critical Care Time: Yes Total Critical Care Time: 35 Discharge Plan Discharge Clinical Impression: Accidental fentanyl overdose, Polysubstance abuse Patient Disposition: Elopement After Seen by Prov Patient Language: Macedonian Prescriptions: New naloxone [Narcan] 4 mg/actuation spray,non-aerosol 4 mg intranasal Q2M PRN (Reason: opioid overdose) Qty: 2 0RF Rx Instructions: spray 1 dose into ONE nostril; alternate nostrils w each dose until help arrives No Action cephalexin 500 mg capsule 500 mg PO Q8H 5 Days Qty: 15 0RF ibuprofen 600 mg tablet 600 mg PO TID PRN (Reason: pain) Qty: 10 0RF Follow-up/Referrals: PHYSICIAN,WARD CLERK [Primary Care Provider] - Time of Disposition: 21:58
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
--- OUTSIDE RECORDS SUMMARY | 2024-08-22 19:39 | XMS_ITS | Encounter Summary ---
Author Organization [facility] Address [address] [place] [address] Phone Care Team Providers Care [employer] Ten[employer] Psychiatrist Name Role Phone Physician, None Primary Care Provider Unavailabl e Kiley Perez LCSW Unavailable Unavailable Encounter Details Date Type Department Care Team (Late st Contact Info) Description 05/24/2019 Documentation [facility] Infectious Diseases [address] [place] [phone] Stef Gregg MS Social History Tobacco Use Types Packs/Day Years Used Date Smoking Tobacco: Every Day Smokeless Tobacco: Never Alcohol Use Standard Drinks/Week Comments Yes 0 (1 standard drink = 0.6 oz pur e alcohol) Sex and Gender Information Value Date Recorded Sex Assigned at Not on file Legal Sex Male 8:26 AM COMMUTATOR OPERATOR Gender Identity Male 05/14/2019 3:06 PM COMMUTATOR OPERATOR Sexual Orientation Not on file documented as of this encounter Plan of Treatment Not on file documented as of this encounter Visit Diagnoses Not on filedocumented in this encounter Additional Health Concerns Infection Onset Date Last Indicated Resolved Time MRSA 04/18/2019 04/19/2019 10/29/2020 5:00 AM CDT documented as of this encounter Care Teams Loc[employer] Ten[employer] Psychiatrist Relationship Specialty Start Date End Date Physician, [place] [address] PCP - General 04/18/19 Kiley Perez LCSW Turner Machine Operator Infectious Diseases 05/04/19 documented as of this encounter
--- OUTSIDE RECORDS SUMMARY | 2024-08-22 19:39 | XMS_ITS | Clinical Summary ---
Author Organization [facility] Address [address] [place] [address] Care Team Providers Care Credit Collections Manager Name Role Phone Physician, None Primary Care Provider Unavailremigio e Ana, Kiley Almaraz INSPECTOR HEALTH CARE FACILITIES Unavailable Unavailable Allergies No known active allergies Medications naloxone [...] 04/25/2019 Assessment & Plan (05/01/2019 2:59 PM AERONAUTICS COMMISSION DIRECTOR): - CT L leg shows poorly-defined area [...] management Assessment & Plan (04/30/2019 10:32 AM AERONAUTICS COMMISSION DIRECTOR): - CT L leg shows poorly-defined area [...] management Assessment & Plan (04/29/2019 12:10 PM AERONAUTICS COMMISSION DIRECTOR): - CT L leg shows poorly-defined area [...] management Assessment & Plan (04/28/2019 12:39 PM AERONAUTICS COMMISSION DIRECTOR): - CT L leg shows poorly-defined area [...] management Assessment & Plan (04/27/2019 1:58 PM AERONAUTICS COMMISSION DIRECTOR): - CT L leg shows poorly-defined area of hypoattenuation in lateral left calf musculature concerning for organizing intramuscular abscess - Added vancomycin yesterday to cover MRSA - check trough before 4th dose - I d/w ACCS - they will evaluate need for I&D Assessment & Plan (04/26/2019 1:53 PM AERONAUTICS COMMISSION DIRECTOR): -Still with hard, tender area L calf -Plan imaging to r/o underlying abscess or deeper infection Assessment & Plan (04/25/2019 9:59 AM AERONAUTICS COMMISSION DIRECTOR): -check electrolytes -Aqua K pad, encourage stretching / massage of calf Hepatitis C virus infection 04/20/2019 Assessment & Plan (05/01/2019 2:59 PM AERONAUTICS COMMISSION DIRECTOR): -Outpatient f/u for treatment -US shows fibrosis vs. Cirrhosis -start hep B vaccination series this admission -Negative HIV & RPR. STD testing pending Assessment & Plan (04/30/2019 10:32 AM AERONAUTICS COMMISSION DIRECTOR): -Outpatient f/u for treatment -US shows fibrosis vs. Cirrhosis -start hep B vaccination series this admission -Will also obtain HIV & STD testing per patient request Assessment & Plan (04/29/2019 12:10 PM AERONAUTICS COMMISSION DIRECTOR): -Outpatient f/u for treatment -US shows fibrosis vs. Cirrhosis -start hep B vaccination series this admission Assessment & Plan (04/28/2019 12:40 PM AERONAUTICS COMMISSION DIRECTOR): -Outpatient f/u for treatment -US shows fibrosis vs. Cirrhosis -start hep B vaccination series this admission Assessment & Plan (04/27/2019 1:59 PM AERONAUTICS COMMISSION DIRECTOR): -Outpatient f/u for treatment -US shows fibrosis vs. Cirrhosis -start hep B vaccination series this admission Assessment & Plan (04/26/2019 1:53 PM AERONAUTICS COMMISSION DIRECTOR): -Outpatient f/u for treatment -US shows fibrosis vs. Cirrhosis -start hep B vaccination series this admission Assessment & Plan (04/25/2019 10:00 AM AERONAUTICS COMMISSION DIRECTOR): -Outpatient f/u for treatment -US shows fibrosis vs. Cirrhosis -start hep B vaccination series this admission Assessment & Plan (04/24/2019 10:23 AM AERONAUTICS COMMISSION DIRECTOR): -Outpatient f/u for treatment -US shows fibrosis vs. cirrhosis Assessment & Plan (04/23/2019 10:26 AM AERONAUTICS COMMISSION DIRECTOR): Incidental finding with elevated transaminases. Likely related to IVDU. PCR quant, 8.9 million. Defer to PCP for referral to liver clinic for HCV tx once 6mo clean achieved. Liver ultrasound in MICU also notable for fibrosis/cirrhosis. Will need Q6mo liver ultrasounds for HCCa screening. Reviewed findings with Patient and answered questions. Assessment & Plan (04/22/2019 12:36 PM AERONAUTICS COMMISSION DIRECTOR): Incidental finding with elevated transaminases. Likely related to IVDU. PCR quant, 8.9 million. Defer to PCP for referral to liver clinic for HCV tx once 6mo clean achieved. Liver ultrasound in MICU also notable for fibrosis/cirrhosis. Will need Q6mo liver ultrasounds for HCCa screening. Reviewed findings with Patient and answered questions. Assessment & Plan (04/21/2019 11:01 AM AERONAUTICS COMMISSION DIRECTOR): Incidental finding with elevated transaminases. Likely related to IVDU. PCR quant, 8.9 million. Defer to PCP for referral to liver clinic for HCV tx once 6mo clean achieved. Liver ultrasound in MICU also notable for fibrosis/cirrhosis. Will need Q6mo liver ultrasounds for HCCa screening. Reviewed findings with Patient Assessment & Plan (04/20/2019 1:26 PM AERONAUTICS COMMISSION DIRECTOR): Incidental finding with elevated transaminases. Likely related to IVDU. PCP for referral to liver clinic once 6mo clean achieved. Bacteremia 04/19/2019 Assessment & Plan (05/01/2019 2:58 PM AERONAUTICS COMMISSION DIRECTOR): -Strep anginosis in 1/2 blood cultures on admit - unclear if this is contaminant or represents true bacteremia but ID recommended treating since he was critically ill on presentation. -Subsequent cultures 2/6 clear -TTE negative for vegetation -14d IV abx, currently on Unasyn. Stop date 05/02/19 Assessment & Plan (04/30/2019 10:31 AM AERONAUTICS COMMISSION DIRECTOR): -Strep anginosis in 1/2 blood cultures on admit - unclear if this is contaminant or represents true bacteremia but ID recommended treating since he was critically ill on presentation. -Subsequent cultures 2/6 clear -TTE negative for vegetation -14d IV abx, currently on Unasyn. Stop date 05/02/19 Assessment & Plan (04/29/2019 12:09 PM AERONAUTICS COMMISSION DIRECTOR): -Strep anginosis in 1/2 blood cultures on admit - unclear if this is contaminant or represents true bacteremia but ID recommended treating since he was critically ill on presentation. -Subsequent cultures 2/6 clear -TTE negative for vegetation -14d IV abx, currently on Unasyn. Stop date 05/02/19 Assessment & Plan (04/28/2019 12:35 PM AERONAUTICS COMMISSION DIRECTOR): -Strep anginosis in 1/2 blood cultures on admit - unclear if this is contaminant or represents true bacteremia -Subsequent cultures 2/6 clear -TTE negative for vegetation -I d/w ID - they rec 14 days of IV abx, currently on Unasyn. Stop date 05/02/19 Assessment & Plan (04/27/2019 1:57 PM AERONAUTICS COMMISSION DIRECTOR): -Strep anginosis in 1/2 blood cultures on admit - unclear if this is contaminant or represents true bacteremia -Subsequent cultures 2/6 clear -TTE negative for vegetation -I d/w ID - they rec 14 days of IV abx, currently on Unasyn. Stop 05/02/19 Assessment & Plan (04/26/2019 1:52 PM AERONAUTICS COMMISSION DIRECTOR): -Strep anginosis in 1/2 blood cultures on admit - unclear if this is contaminant or represents true bacteremia -Subsequent cultures 2/6 clear -TTE negative for vegetation -I d/w ID - they rec 14 days of IV abx, currently on Unasyn. Stop 05/02/19 Assessment & Plan (04/25/2019 9:59 AM AERONAUTICS COMMISSION DIRECTOR): -Strep anginosis in 1/2 blood cultures on admit - unclear if this is contaminant or represents true bacteremia -Subsequent cultures 2/6 clear -TTE negative for vegetation -I d/w ID - they rec 14 days of IV abx, currently on Unasyn. Stop 05/02/19 Assessment & Plan (04/24/2019 10:21 AM AERONAUTICS COMMISSION DIRECTOR): -Strep anginosis in 1/2 blood cultures on admit - unclear if this is contaminant or represents true bacteremia -Subsequent cultures 2/6 clear -TTE negative for vegetation -I d/w ID - they rec 14 days of IV abx, currently on Unasyn. Stop 05/02/19 Assessment & Plan (04/23/2019 10:22 AM AERONAUTICS COMMISSION DIRECTOR): -Strep anginosis in 1/2 blood cultures on admit - unclear if this is contaminant or represents true bacteremia -Subsequent cultures 2/6 clear -TTE negative for vegetation -ID following - will discuss with them Assessment & Plan (04/22/2019 12:33 PM AERONAUTICS COMMISSION DIRECTOR): Strep bacteremia. Repeat cxs NGTD from 04/19. Plan 14d inpt course from 1st negative cultures. TTE neg for vegetations. Not candidate for home infusion given active IVDU up to admit. If persistent bacteremia, obtain COLIN and consult ID. Access PIV, not candidate for PICC. Assessment & Plan (04/21/2019 10:55 AM AERONAUTICS COMMISSION DIRECTOR): Strep bacteremia. Repeat cxs NGTD from 04/19. Plan 14d inpt course from 1st negative cultures. TTE neg for vegetations. Not candidate for home infusion given active IVDU up to admit. If persistent bacteremia, obtain COLIN and consult ID. Access PIV, not candidate for PICC. Assessment & Plan (04/20/2019 1:13 PM AERONAUTICS COMMISSION DIRECTOR): Strep bacteremia. Repeat cxs pending. Plan 14d inpt course once cxs negative. TTE neg for vegetations. Not candidate for home infusion given active IVDU up to admit. If persistently +cxs, obtain COLIN. Assessment & Plan (04/19/2019 1:47 PM AERONAUTICS COMMISSION DIRECTOR): 2/5 bcx / growing Streptococcus anginosus. Febrile to 38.2C 2/5PM -vanc (04/18-04/19) to cover resistant species. -CTX 2/5- -daily BCx until clear -f/u TTE Drug overdose 04/18/2019 Assessment & Plan (05/02/2019 9:20 AM AERONAUTICS COMMISSION DIRECTOR): - IVDU with unintentional drug overdose. Pt acknowledges addiction. -Tox following, on suboxone - Appointment with [facility] in 2 weeks - UDS 05/01 negative Assessment & Plan (04/30/2019 10:31 AM AERONAUTICS COMMISSION DIRECTOR): - IVDU with unintentional drug overdose. Pt acknowledges addiction. -Tox following, on suboxone -Plan to set up with [facility] before discharge Assessment & Plan (04/29/2019 12:10 PM AERONAUTICS COMMISSION DIRECTOR): - IVDU with unintentional drug overdose. Pt acknowledges addiction. -Tox following, on suboxone -Plan to set up with [facility] before discharge Assessment & Plan (04/28/2019 12:39 PM AERONAUTICS COMMISSION DIRECTOR): - IVDU with unintentional drug overdose. Pt acknowledges addiction. -Tox following, on suboxone -Plan to set up with [facility] before discharge Assessment & Plan (04/27/2019 1:59 PM AERONAUTICS COMMISSION DIRECTOR): - IVDU with unintentional drug overdose. Pt acknowledges addiction. -Tox following, on suboxone -Plan to set up with [facility] before discharge Assessment & Plan (04/26/2019 1:53 PM AERONAUTICS COMMISSION DIRECTOR): - IVDU with unintentional drug overdose. Pt acknowledges addiction. -Tox following, on suboxone -Plan to set up with [facility] before discharge Assessment & Plan (04/25/2019 9:59 AM AERONAUTICS COMMISSION DIRECTOR): - IVDU with unintentional drug overdose. Pt acknowledges addiction. -Tox following, on suboxone -Plan to set up with [facility] before discharge Assessment & Plan (04/24/2019 10:21 AM AERONAUTICS COMMISSION DIRECTOR): - IVDU with unintentional drug overdose. Pt acknowledges addiction. -Tox following, on suboxone -Plan to set up with [facility] before discharge Assessment & Plan (04/23/2019 10:26 AM AERONAUTICS COMMISSION DIRECTOR): - IVDU with unintentional drug overdose. Pt acknowledges addiction. Toxicology consulted, interested in suboxone use and started suboxone 8/2 BID. No S/H ideations. +UDS on admit . SW consulted for o/p resources. Encourage abstinence. Bridging script to be provided by tox prior to o/p f/u with [facility] provider, please notify several days prior to discharge to arrange. Assessment & Plan (04/22/2019 12:34 PM AERONAUTICS COMMISSION DIRECTOR): IVDU with unintentional drug overdose. Pt acknowledges addiction. Toxicology consulted, interested in suboxone use and started suboxone 8/2 BID. No S/H ideations. +UDS on admit . SW consulted for o/p resources. Encourage abstinence. Bridging script to be provided by tox prior to o/p f/u with [facility] provider, please notify several days prior to discharge to arrange. Assessment & Plan (04/21/2019 10:57 AM AERONAUTICS COMMISSION DIRECTOR): IVDU with unintentional drug overdose. Pt acknowledges addiction. Toxicology consulted, interested in suboxone use and started suboxone 8/2 BID. No S/H ideations. +UDS on admit . SW consulted for o/p resources. Encourage abstinence. Bridging script to be provided by tox prior to o/p f/u with [facility] provider Assessment & Plan (04/20/2019 1:16 PM AERONAUTICS COMMISSION DIRECTOR): IVDU with unintentional drug overdose. Pt acknowledges addiction. Toxicology consulted, interested in suboxone use. No S/H ideations. +UDS on admit . SW consulted. Encourage abstinence. Assessment & Plan (04/19/2019 1:45 PM AERONAUTICS COMMISSION DIRECTOR): -UDS + amphetamine, benzos, cannabinoids, cocaine, fentanyl; narcan x2 in ED + 3L LR + 1L NS -VB.23/60/38; [place] [address] -2/5: intubated and sedated with propofol, fentanyl [...] 020 Assessment & Plan (04/22/2019 12:35 PM AERONAUTICS COMMISSION DIRECTOR): Aspiration event likely with drug overdose. S/p intub/vent support. On RA. S/p vanco x1, On IV ceftriaxone for strep bacteremia. No need for abxs for aspiration. No issues with swallowing. Tolerating po diet. Afebrile. Assessment & Plan (04/21/2019 10:58 AM AERONAUTICS COMMISSION DIRECTOR): Aspiration event likely with drug overdose. S/p intub/vent support. On RA. S/p vanco x1, On IV ceftriaxone for strep bacteremia. No need for abxs for aspiration. No issues with swallowing. Tolerating po diet. Afebrile. Assessment & Plan (04/20/2019 1:22 PM AERONAUTICS COMMISSION DIRECTOR): Aspiration event likely with drug overdose. S/p intub/vent support. On RA. S/p vanco x1, On IV ceftriaxone for strep bacteremia. No need for abxs for aspiration. No issues with swallowing. Assessment & Plan (04/19/2019 1:47 PM AERONAUTICS COMMISSION DIRECTOR): CXR with increased opacity in the left lung and RLL consistent with aspiration. -s/p 1 dose of vanc and azithro in the ED -IV ceftriaxone 1g q24h (2/5-). Give 1 more dose of vanc 2/6 Hyperkalemia 04/18/2019 04/18/2019 Assessment & Plan (04/18/2019 5:17 PM AERONAUTICS COMMISSION DIRECTOR): K 6.1 on admission. S/p hyperK protocol in ED. EKG in NSR, no peaked t waves. Repeat whole blood K in ED 4.9. - trend BMPs Acute kidney injury 04/18/2019 04/24/19 20 Assessment & Plan (04/24/2019 10:22 AM AERONAUTICS COMMISSION DIRECTOR): Cr 1.84 on admit. Occurring in the setting of drug overdose, possible dehydration, and rhabdomyolysis. CPK 17k improving to 3100 & further on repeat. Monitor po intake (>1L/day goal), PT/OT eval. F/u Cr 0.93, ARF now resolved. Assessment & Plan (04/23/2019 10:26 AM AERONAUTICS COMMISSION DIRECTOR): Cr 1.84 on admit. Occurring in the setting of drug overdose, possible dehydration, and rhabdomyolysis. CPK 17k improving to 3100 & further on repeat. Monitor po intake (>1L/day goal), PT/OT eval. F/u Cr 0.93, ARF now resolved. Assessment & Plan (04/22/2019 12:34 PM AERONAUTICS COMMISSION DIRECTOR): Cr 1.84 on admit. Occurring in the setting of drug overdose, possible dehydration, and rhabdomyolysis. CPK 17k improving to 3100 & further on repeat. Monitor po intake (>1L/day goal), PT/OT eval. F/u Cr 0.93, ARF now resolved. Assessment & Plan (04/21/2019 10:57 AM AERONAUTICS COMMISSION DIRECTOR): Cr 1.84 on admit. Occurring in the setting of drug overdose, possible dehydration, and rhabdomyolysis. CPK 17k improving to 8000 & further on repeat. Monitor po intake (>1L/day goal), PT/OT eval. F/u Cr 0.93, ARF now resolved. Assessment & Plan (04/20/2019 1:20 PM AERONAUTICS COMMISSION DIRECTOR): Cr 1.84 on admit. Occurring in the setting of drug overdose, possible dehydration, and rhabdomyolysis. CPK 17k improving to 8000 on repeat. Monitor po intake (>1L/day goal), PT/OT eval. F/u Cr 0.93, now resolved. Assessment & Plan (04/19/2019 1:47 PM AERONAUTICS COMMISSION DIRECTOR): BUN/Cr of 29/2.42 on admission, CK 18k, rhabdo - improved with IVF Encounters Date Type Department Care Team Description 07/05/2024 3:07 PM CDT - 07/05/2024 5:45 [place] [address] Bri Higgins MD Fentanyl use disorder, mild (HCC) (Primary Dx) Discharge Disposition: Discharge to home or self care from Last 3 Months Immunizations Immunization Administration Dates Next Due DTP 11/09/1990, 8,12/12/1986,09/06/1986,0 06/11/1986 Hep B Vaccine 04/29/2019 Hep B, Adolescent or Pediatric 01/28/1997,1996,03/01/1996 HiB 10/13/1987 MMR 11/27/1992,10/13/1987 OPV 11/09/1990,10/13/1987,09/06/1986 ,06/11/1986 Td, adsorbed 04/04/2002 Tdap 04/18/2015 Medical History Medical History Date Comments IV drug user Leg abscess 04/25/2019 Social History Tobacco Use Types Packs/Day Years [...] on file Legal Sex Male 8:26 AM AERONAUTICS COMMISSION DIRECTOR Gender Identity Male 05/14/2019 3:06 PM AERONAUTICS COMMISSION DIRECTOR Sexual Orientation Not on file Obstetrics History Last Filed Vital Signs Vital Sign Reading [...] 10/08/2023 5:37 PM CDT Plan of Treatment Health Maintenance Due Date Last Done Comments Depression Screening 1985 Varicella Vaccines (1 of 2 - 13+ 2-dose series) 1998 Regular Well Visit/Exam 18-64 11/01/2003 Pneumococcal vaccine <65 (1 of 2 - PCV) 2004 Influenza Vaccine (Season Ended) 2024 DTaP/Tdap/Td Vaccine (7 - Td or Tdap) 04/18/2025 04/18/2015, 04/04/2002, 11/09/1990, Additional history exists Hepatitis C Screening Completed 04/20/2019 , 04/19/2019, 04/18/2019, Additional history exists HPV Vaccines Aged Out No longer eligi ble based on patient's age to complete this topic Procedures Procedure Name Priority Date/Time Associated Diagnosis Comments HEPATITIS C RNA, QUANTITATIVE, PCR Routine 04/19/2019 4:27 PM AERONAUTICS COMMISSION DIRECTOR from Last 3 Months or Most Recently Relevant to Health Maintenance Results * (ABNORMAL) Hepatitis C (HCV) RNA PCR, quantitative (04/19/2019 4:27 PM AERONAUTICS COMMISSION DIRECTOR) [facility] Signature HCV RNA result Detected( A) [facility] Comment: Interpretive data: The quantifiable range of this assay is 15 IU/mL to 100,000,000 IU/mL (1.18 log IU/mL to 8.00 log IU/mL). Testing was performed by the [employer] TaqMan HCV Test version 2.0 ([employer] Testing performed at [facility] Current Interpretive Data was last revised on 2014. HCV RNA IU/mL 8,978,295 IUnits/mL [facility] HCV RNA log IU/mL 6.95 log IUnits/mL [facility] Blood specimen (specimen) 04/19/2019 4:27 PM AERONAUTICS COMMISSION DIRECTOR 04/19/2019 4:53 PM AERONAUTICS COMMISSION DIRECTOR Maya Durand MD LAB MICROBIOLOGY - GENERAL O RDERABLES Final Result [facility] [place] [address] from Last 3 Months or Most Recently Relevant to Health Maintenance Insurance [employer] [facility] [employer] [employer] [place]M [id number] Advance Directives For more information, please contact: [phone] * Full Code (Latest Code Status on File) Date Activated Date Inactivated Comments 04/18/2019 5:08 PM 05/02/2019 5:33 PM Care Teams Credit Collections Manager Relationship Specialty Start Date End Date Physician, [place] [address] PCP - General 04/18/19 Kiley Perez, INSPECTOR HEALTH CARE FACILITIES Heel Gummer Infectious Diseases 05/04/19
--- NOTE | 2024-08-22 21:02 | PC.NURSE ---
pt requesting to leave [facility], dr hitchcock notified and paperwork signed.
== END 2024-08-22 21:03 | disposition left against medical advice (07) ==
PROVIDERS: Emergency Provider Student in an Organized Health Care Education/Training Program
DX: T40.411A Poisoning by fentanyl or fentanyl analogs, accidental (unintentional), initial encounter (principal); F19.10 Other psychoactive substance abuse, uncomplicated; F17.200 Nicotine dependence, unspecified, uncomplicated; Z86.19 Personal history of other infectious and parasitic diseases
CPT/HCPCS: 71045; 96374; 99284; J2310